=== PATIENT | female | born 1950 | race Caucasian/White ===

== ENCOUNTER 2023-05-05 15:29 | Observation (INO) | payer BC, MEDICARE ==
[2023-05-05 15:38] LABS: Glucose,Whole Blood 135 mg/dL (70-110)
--- NOTE | 2023-05-05 16:27 | XR ---
EXAMINATION TYPE: XR chest 2V DATE OF EXAM: 05/05/2023 4:23 PM CLINICAL INDICATION:Female, 72 years old with history of confusion fall; [facility] COMPARISON: Chest radiographs from 09/07/2015 TECHNIQUE: XR chest 2V Frontal and lateral views of the chest. FINDINGS: Lungs/Pleura: There is no evidence of pleural effusion, focal consolidation, or pneumothorax. Pulmonary vascularity: Unremarkable. Heart/mediastinum: Cardiomediastinal silhouette is unremarkable. Musculoskeletal: No acute osseous pathology. IMPRESSION: 1. No acute cardiopulmonary disease process. 2. COPD changes.
--- NOTE | 2023-05-05 16:32 | CT ---
EXAMINATION TYPE: CT brain cspine wo con CT DLP: 1496.1 mGycm, Automated exposure control for dose reduction was used. DATE OF EXAM: 05/05/2023 4:24 PM COMPARISON: 08/09/2017. CLINICAL INDICATION:Female, 72 years old with history of confusion; Shaking, disoriented, dizzy, conf used. TECHNIQUE: Brain: Multiple axial CT images of the brain were obtained without IV contrast. Cspine: Axial CT images from the skull base to the inferior aspect of T2 we obtained without intraven ous contrast. Coronal and sagittal reformatted images were also reviewed. FINDINGS: Brain: Extra-axial spaces: No abnormal extra-axial fluid collections. Ventricular system: Dilatation in proportion to cerebral atrophy. Cerebral parenchyma: Cerebral atrophy. No acute intraparenchymal hemorrhage or mass effect. The zarco -white junction is well differentiated. Scattered hypoattenuating areas are seen within the white mat ter. Cerebellum: Unremarkable. Mass effect: No evidence of midline shift. Intracranial vasculature: unremarkable Soft tissues: Normal. Calvarium/osseous structures: No depressed skull fracture. Paranasal sinuses and mastoid air cells: Clear. Visualized orbits: Left aphakia. The right lens is intact. Cervical spine: Fracture: None. Osseous structures: Multilevel degenerative disc disease changes with endplate spurring and disc oste ophyte complex's. Vertebral alignment: Within normal limits. Spinal canal/Neural Foramina: No evidence of significant spinal canal narrowing. No evidence for sign ificant neural foraminal stenosis. Neck soft tissues: Prevertebral soft tissues are within normal limits. IMPRESSION: 1. No acute intracranial process. 2. Nonspecific white matter changes, likely secondary to chronic small vessel ischemic disease. 3. No evidence of cervical spine fracture. 4. Mild multilevel degenerative disc disease.
[2023-05-05 16:47] LABS: ALT 48 U/L (4-34); African American GFR (CKD) >90 (>60 ml/min/1.73 sqM); Albumin 4.3 g/dL (3.5-5.0); Anion Gap 9 mmol/L; Basophils # (A) 0.1 k/uL (0-0.2); Basophils % (A) 1 %; Blood Urea Nitrogen 19 mg/dL (7-17); Calcium 9.1 mg/dL (8.4-10.2); Carbon Dioxide 24 mmol/L (22-30); Chloride 99 mmol/L (98-107); Eosinophils # (A) 0.1 k/uL (0-0.7); Eosinophils % (A) 1 %; Glucose 132 mg/dL (74-99); HCT 47.7 % (34.0-46.0); HGB 15.7 gm/dL (11.4-16.0); Lymphocytes # (A) 0.6 k/uL (1.0-4.8); Lymphocytes % (A) 6 %; MCH 34.1 pg (25.0-35.0); MCHC 32.9 g/dL (31.0-37.0); MCV 103.6 fL (80.0-100.0); Macrocytosis Slight; Mean Platelet Volume 7.1; Monocytes # (A) 0.5 k/uL (0-1.0); Monocytes % (A) 6 %; Neutrophils % (A) 86 %; Non-African American GFR(CKD) >90 (>60 ml/min/1.73 sqM); Platelet Count 304 k/uL (150-450); RDW 12.5 % (11.5-15.5); Sodium 132 mmol/L (137-145); Total Bilirubin 0.5 mg/dL (0.2-1.3); Total Protein 7.1 g/dL (6.3-8.2); WBC 9.3 k/uL (3.8-10.6)
[2023-05-05 17:04] LABS: AST 41 U/L (14-36)
[2023-05-05 17:05] LABS: Alkaline Phosphatase 194 U/L (38-126)
[2023-05-05 17:21] LABS: INR 0.9 (<1.2); Prothrombin Time 10.1 sec (10.0-12.5)
[2023-05-05 17:23] LABS: Partial Thromboplastin Time 21.7 sec (22.0-30.0)
--- NOTE | 2023-05-05 17:52 | ED ---
General Adult HPI - General Chief complaint: Syncope Stated complaint: shaking disoriented Time Seen by Provider: 05/05/23 17:46 Source: patient, RN notes reviewed Mode of arrival: ambulatory Limitations: no limitations - History of Present Illness Initial comments: 72 year old female with no significant past medical history presents the emergency department with a chief complaint of altered mental status. reports over the last 2 days that he has noticed the patient pacing and not making sense. She reports that she will intermittently forget things more frequently and describes that she is in a blue funk. She denies any known trauma or injury. He does endorse that she had a fall excellently 3 days ago however he is unsure if she hit her head. She denies any dizziness, lightheadedness, headache or vision changes or vision loss. Denies any chest pain or shortness of breath. She's never had this happen before. - Related Data Home Medications Medication Instructions Recorded Confirmed Aspirin [Adult Low Dose Aspirin EC] 81 mg PO HS 09/11/15 05/05/23 Atorvastatin [Lipitor] 10 mg PO HS 08/09/17 05/05/23 Magnesium 250 mg PO HS 08/09/17 05/05/23 Cholecalciferol [Vitamin D3 (25 25 mcg PO HS 05/05/23 05/05/23 Mcg = 1000 Iu)] Levothyroxine Sodium [Synthroid] 50 mcg PO DAILY 05/05/23 05/05/23 Multivit-Min/FA/Lycopen/Lutein 1 tab PO HS 05/05/23 05/05/23 [Centrum Silver Tablet] Vit C/E/Zn/Coppr/Lutein/Zeaxan 1 cap PO HS 05/05/23 05/05/23 [Preservision Areds 2 Softgel] Allergies Allergy/AdvReac Type Severity Reaction Status Date / Time lactose Allergy Diarrhea Verified 05/05/23 19:42 Review of Systems ROS Statement: Those systems with pertinent positive or pertinent negative responses have been documented in the HPI. ROS Other: All systems not noted in ROS Statement are negative. Past Medical History Past Medical History: Diabetes Mellitus, Hyperlipidemia Additional Past Medical History / Comment(s): hypothyroid History of Any Multi-Drug Resistant Organisms: None Reported Past Surgical History: No Surgical Hx Reported, Section Additional Past Surgical History / Comment(s): 1982 Past Anesthesia/Blood Transfusion Reactions: No Reported Reaction Past Psychological History: No Psychological Hx Reported Past Alcohol Use History: None Reported Past Drug Use History: None Reported - Past Family History Father Additional Family Medical History / Comment(s): Father at the age of 62 yrs from "natural causes." Mother Additional Family Medical History / Comment(s): Mother is due to house fire. General Exam - General Exam Comments Initial Comments: General: Alert, in no acute distress Head: atraumatic normocephalic. Eyes PERRL, EOMI intact, mucous membranes moist Respiratory: Lungs clear to auscultation bilaterally Cardiovascular: Heart rate regular rate and rhythm Abdominal: Soft without guarding or rebound Extremities: Normal inspection with full range of motion and normal capillary refill Neuroogic: alert and oriented 3, CN II-XII intact, able to ambulate with steady gait Skin: warm dry and intact with normal color Limitations: no limitations Course Vital Signs 05/05/23 05/05/23 05/05/23 15:34 18:32 22:10 Temperature 98.5 F 97.9 F Pulse Rate 79 71 Pulse Rate [ 83 Left Sitting Pulse Oximetery ] Respiratory 16 18 18 Rate Blood Pressure 171/94 195/92 Blood Pressure 135/78 [Left Arm Sitting] O2 Sat by Pulse 98 97 99 Oximetry - Reevaluation(s) Reevaluation #1: 05/05/23 20:18 [facility] discussed with Dr. Boland, [facility] who agrees and accepts the patient for admission with consult to neurology. EKG Findings - EKG Comments: EKG Findings:: I interpreted the following: EKG performed at 15:52 rate 70 bpm MA interval 148, QRS duration 82, QT/QTc 345/378 Medical Decision Making - Medical Decision Making Was pt. sent in by a medical professional or institution (, PA, WOOL PRESSER, urgent care, hospital, or care home...) When possible be specific @ -[No] Did you speak to anyone other than the patient for history (EMS, parent, family, police, friend...)? What history was obtained from this source @ -[No] Did you review nursing and triage notes (agree or disagree)? Why? @ -[I reviewed and agree with nursing and triage notes] Were old charts reviewed (outside hosp., previous admission, EMS record, old EKG, old radiological studies, urgent care reports/EKG's, care home records)? Report findings @ -[No old charts were reviewed] Differential Diagnosis (chest pain, altered mental status, abdominal pain women, abdominal pain men, vaginal bleeding, weakness, fever, dyspnea, syncope, headache, dizziness, GI bleed, back pain, seizure, CVA, palpatations, mental health, musculoskeletal)? @ -[not applicable] EKG interpreted by me (3pts min.). @ -[As above] X-rays interpreted by me (1pt min.). @ -[None done] CT interpreted by me (1pt min.). @ -CT head does not reveal any intracranial process U/S interpreted by me (1pt. min.). @ -[None done] What testing was considered but not performed or refused? (CT, X-rays, U/S, labs)? Why? @ -[None] What meds were considered but not given or refused? Why? @ -[None] Did you discuss the management of the patient with other professionals (professionals i.e. , PA, WOOL PRESSER, lab, RT, psych nurse, vp digital marketing social media and crm, licensed sales producer, teacher, armoured corps officer, case checker)? Give summary @ -Dr. Boland Was smoking cessation discussed for >3mins.? @ -[No] Was critical care preformed (if so, how long)? @ -[No] Were there social determinants of health that impacted care today? How? (Homelessness, low income, unemployed, alcoholism, drug addiction, transportation, low edu. Level, literacy, decrease access to med. care, care home, rehab)? @ -[No] Was there de-escalation of care discussed even if they declined (Discuss DNR or withdrawal of care, Hospice)? DNR status @ -[No] What co-morbidities impacted this encounter? (DM, HTN, Smoking, COPD, CAD, Cancer, CVA, ARF, Chemo, Hep., AIDS, mental health diagnosis, sleep apnea, morbid obesity)? @ -[None] Was patient admitted / discharged? Hospital course, mention meds given and route, prescriptions, significant lab abnormalities, going to OR and other per tinent info. @ Admission. This is a 72-year-old female who presents the emergency department with altered mental status. Patient had thorough history and physical exam performed while in the ED. Physical exam essentially unremarkable. Patient able to answer all questions appropriately. Heart rate regular rate and rhythm, lungs are to auscultation bilaterally abdomen soft and nontender. No focal neurologic deficits noted on exam. She is able to move all extremitiesfreely with a steady gait. Patient had laboratory studies which revealed WBC 9.3, hemoglobin 15.7 hematocrit 47.7 coags unremarkable sodium 132, potassium 5.0 BUN 19, creatinine 0.50 AST 41, aVL to 48 ammonia less than 9 initial troponin negative. Urinalysis negative. Despite having unremarkable laboratory and imaging status is my decision to admit the patient for further observation. Case discussed with Dr. Boland who agrees for further imaging with consult to neurology. Patient and patient's agreeable with this plan. Case discussed with Dr. Rivas [facility] who agrees with plan of care Undiagnosed new problem with uncertain prognosis? @ -[No] Drug Therapy requiring intensive monitoring for toxicity (Heparin, Nitro, Insu genesis, Cardizem)? @ -[No] Were any procedures done? @ -[No] Diagnosis/symptom? @ -Altered Mental Status Acute, or Chronic, or Acute on Chronic? @ -Acute Uncomplicated (without systemic symptoms) or Complicated (systemic symptoms)? @ -Uncomplicated Side effects of treatment? @ -[No] Exacerbation, Progression, or Severe Exacerbation? @ -[No] Poses a threat to life or bodily function? How? (Chest pain, [place], [place], pneumonia, PE, COPD, DKA, ARF, appy, cholecystitis, CVA, Diverticulitis, Homicidal, Suicidal, threat to staff... and all critical care pts) @ Yes, increased fall risk - Lab Data Result diagrams: 05/05/23 15:41 05/05/23 15:41 Lab Results 05/05/23 05/05/23 05/05/23 Range/Units 15:36 15:41 15:41 WBC 9.3 (3.8-10.6) k/uL RBC 4.60 (3.80-5.40) m/uL Hgb 15.7 (11.4-16.0) gm/dL Hct 47.7 H (34.0-46.0) % MCV 103.6 H (80.0-100.0) fL MCH 34.1 (25.0-35.0) pg MCHC 32.9 (31.0-37.0) g/dL RDW 12.5 (11.5-15.5) % Plt Count 304 (150-450) k/uL MPV 7.1 Neutrophils % 86 % Lymphocytes % 6 % Monocytes % 6 % Eosinophils % 1 % Basophils % 1 % Neutrophils # 8.0 H (1.3-7.7) k/uL Lymphocytes # 0.6 L (1.0-4.8) k/uL Monocytes # 0.5 (0-1.0) k/uL Eosinophils # 0.1 (0-0.7) k/uL Basophils # 0.1 (0-0.2) k/uL Macrocytosis Slight PT 10.1 (10.0-12.5) sec INR 0.9 (<1.2) APTT 21.7 L (22.0-30.0) sec Sodium (137-145) mmol/L Potassium (3.5-5.1) mmol/L Chloride (98-107) mmol/L Carbon Dioxide (22-30) mmol/L Anion Gap mmol/L BUN (7-17) mg/dL Creatinine (0.52-1.04) mg/dL Est GFR (CKD-EPI)AfAm (>60 ml/min/1.73 sqM) Est GFR (CKD-EPI)NonAf (>60 ml/min/1.73 sqM) Glucose (74-99) mg/dL POC Glucose (mg/dL) 135 H (70-110) mg/dL POC Glu Machine Setter And Repairer ID Chris Rajput Calcium (8.4-10.2) mg/dL Total Bilirubin (0.2-1.3) mg/dL AST (14-36) U/L ALT (4-34) U/L Alkaline Phosphatase (38-126) U/L Ammonia (<30) umol/L Troponin I (0.000-0.034) ng/mL Total Protein (6.3-8.2) g/dL Albumin (3.5-5.0) g/dL Urine Color Urine Appearance (Clear) Urine pH (5.0-8.0) Ur Specific Spencer (1.001-1.035) Urine Protein (Negative) Urine Glucose (UA) (Negative) Urine Ketones (Negative) Urine Blood (Negative) Urine Nitrite (Negative) Urine Bilirubin (Negative) Urine Urobilinogen (<2.0) mg/dL Ur Leukocyte Esterase (Negative) Urine RBC (0-5) /hpf Urine WBC (0-5) /hpf Ur Squamous Epith Cells (0-4) /hpf Amorphous Sediment (None) /hpf Urine Bacteria (None) /hpf Urine Mucus (None) /hpf 05/05/23 05/05/23 05/05/23 Range/Units 15:41 15:41 15:41 WBC (3.8-10.6) k/uL RBC (3.80-5.40) m/uL Hgb (11.4-16.0) gm/dL Hct (34.0-46.0) % MCV (80.0-100.0) fL MCH (25.0-35.0) pg MCHC (31.0-37.0) g/dL RDW (11.5-15.5) % Plt Count (150-450) k/uL MPV Neutrophils % % Lymphocytes % % Monocytes % % Eosinophils % % Basophils % % Neutrophils # (1.3-7.7) k/uL Lymphocytes # (1.0-4.8) k/uL Monocytes # (0-1.0) k/uL Eosinophils # (0-0.7) k/uL Basophils # (0-0.2) k/uL Macrocytosis PT (10.0-12.5) sec INR (<1.2) APTT (22.0-30.0) sec Sodium 132 L (137-145) mmol/L Potassium 5.0 (3.5-5.1) mmol/L Chloride 99 (98-107) mmol/L Carbon Dioxide 24 (22-30) mmol/L Anion Gap 9 mmol/L BUN 19 H (7-17) mg/dL Creatinine 0.50 L (0.52-1.04) mg/dL Est GFR (CKD-EPI)AfAm >90 (>60 ml/min/1.73 sqM) Est GFR (CKD-EPI)NonAf >90 (>60 ml/min/1.73 sqM) Glucose 132 H (74-99) mg/dL POC Glucose (mg/dL) (70-110) mg/dL POC Glu Machine Setter And Repairer ID Calcium 9.1 (8.4-10.2) mg/dL Total Bilirubin 0.5 (0.2-1.3) mg/dL AST 41 H (14-36) U/L ALT 48 H (4-34) U/L Alkaline Phosphatase 194 H (38-126) U/L Ammonia (<30) umol/L Troponin I <0.012 (0.000-0.034) ng/mL Total Protein 7.1 (6.3-8.2) g/dL Albumin 4.3 (3.5-5.0) g/dL Urine Color Yellow Urine Appearance Cloudy H (Clear) Urine pH 7.0 (5.0-8.0) Ur Specific Spencer 1.025 (1.001-1.035) Urine Protein Negative (Negative) Urine Glucose (UA) Negative (Negative) Urine Ketones Negative (Negative) Urine Blood Trace (Negative) Urine Nitrite Negative (Negative) Urine Bilirubin Negative (Negative) Urine Urobilinogen <2.0 (<2.0) mg/dL Ur Leukocyte Esterase Moderate (Negative) Urine RBC 3 (0-5) /hpf Urine WBC 5 (0-5) /hpf Ur Squamous Epith Cells 1 (0-4) /hpf Amorphous Sediment Moderate H (None) /hpf Urine Bacteria Occasional H (None) /hpf Urine Mucus Rare H (None) /hpf 05/05/23 Range/Units 18:41 WBC (3.8-10.6) k/uL RBC (3.80-5.40) m/uL Hgb (11.4-16.0) gm/dL Hct (34.0-46.0) % MCV (80.0-100.0) fL MCH (25.0-35.0) pg MCHC (31.0-37.0) g/dL RDW (11.5-15.5) % Plt Count (150-450) k/uL MPV Neutrophils % % Lymphocytes % % Monocytes % % Eosinophils % % Basophils % % Neutrophils # (1.3-7.7) k/uL Lymphocytes # (1.0-4.8) k/uL Monocytes # (0-1.0) k/uL Eosinophils # (0-0.7) k/uL Basophils # (0-0.2) k/uL Macrocytosis PT (10.0-12.5) sec INR (<1.2) APTT (22.0-30.0) sec Sodium (137-145) mmol/L Potassium (3.5-5.1) mmol/L Chloride (98-107) mmol/L Carbon Dioxide (22-30) mmol/L Anion Gap mmol/L BUN (7-17) mg/dL Creatinine (0.52-1.04) mg/dL Est GFR (CKD-EPI)AfAm (>60 ml/min/1.73 sqM) Est GFR (CKD-EPI)NonAf (>60 ml/min/1.73 sqM) Glucose (74-99) mg/dL POC Glucose (mg/dL) (70-110) mg/dL POC Glu Machine Setter And Repairer ID Calcium (8.4-10.2) mg/dL Total Bilirubin (0.2-1.3) mg/dL AST (14-36) U/L ALT (4-34) U/L Alkaline Phosphatase (38-126) U/L Ammonia <9 (<30) umol/L Troponin I (0.000-0.034) ng/mL Total Protein (6.3-8.2) g/dL Albumin (3.5-5.0) g/dL Urine Color Urine Appearance (Clear) Urine pH (5.0-8.0) Ur Specific Spencer (1.001-1.035) Urine Protein (Negative) Urine Glucose (UA) (Negative) Urine Ketones (Negative) Urine Blood (Negative) Urine Nitrite (Negative) Urine Bilirubin (Negative) Urine Urobilinogen (<2.0) mg/dL Ur Leukocyte Esterase (Negative) Urine RBC (0-5) /hpf Urine WBC (0-5) /hpf Ur Squamous Epith Cells (0-4) /hpf Amorphous Sediment (None) /hpf Urine Bacteria (None) /hpf Urine Mucus (None) /hpf Disposition Clinical Impression: Altered mental status Disposition: ADMITTED IP TO THIS HOSP Condition: Fair Time of Disposition: 20:20
[2023-05-05] MEDS ORDERED: SODIUM CHLORIDE 0.9% 1,000 ML IV ONE (18:23)
[2023-05-05 18:44] LABS: Amorphous Sediment,Urine Moderate /hpf; Bacteria,Urine Occasional /hpf; Mucus,Urine Rare /hpf; RBC,Urine 3 /hpf (0-5); Squamous Epithelial Cell,Urine 1 /hpf (0-4); WBC,Urine 5 /hpf (0-5)
[2023-05-05 18:51] LABS: Appearance,Urine Cloudy (Clear); Bilirubin,Urine Negative (Negative); Blood,Urine Trace (Negative); Color,Urine Yellow; Glucose,Urine (UA) Negative (Negative); Ketones,Urine Negative (Negative); Protein,Urine Negative (Negative); Specific Gravity,Urine 1.025 (1.001-1.035); Urobilinogen,Urine <2.0 mg/dL (<2.0)
[2023-05-05 18:52] LABS: Leukocyte Esterase,Urine Moderate (Negative); Nitrite,Urine Negative (Negative)
[2023-05-05] MEDS ORDERED: hydrALAZINE HCL 20 MG/ML 1 ML VIAL IVP STA (19:54)
[2023-05-05] MEDS ORDERED: NALOXONE 0.4 MG/ML 1 ML VIAL IV PRN (20:21)
[2023-05-05] MEDS: SODIUM CHLORIDE 0.9% 1,000 ML IV SCH (21:01)
[2023-05-06] MEDS ORDERED: ACETAMINOPHEN TAB 500 MG TAB PO PRN (03:24)
[2023-05-06 09:05] LABS: Basophils # (A) 0.08 X 10*3/uL (0.00-0.10); Basophils % (A) 1.3 %; Eosinophils # (A) 0.07 X 10*3/uL (0.04-0.35); Eosinophils % (A) 1.1 %; HGB 14.1 d/dL (12.0-15.0); Lymphocytes # (A) 0.39 X 10*3/uL (0.90-5.00); Lymphocytes % (A) 6.2 %; MCH 33.5 pg (27.0-32.0); MCHC 34.4 d/dL (32.0-37.0); MCV 97.4 FL (80.0-97.0); Mean Platelet Volume 9.1 FL (9.5-12.2); Monocytes # (A) 0.84 X 10*3/uL (0.20-1.00); Monocytes % (A) 13.3 %; NRBC Per 100 WBC 0 X 10*3/uL (0.00-0.01); Neutrophils # (A) 4.86 X 10*3/uL (1.80-7.70); Platelet Count 290 X 10*3/uL (140-440); RBC 4.21 X 10*6/uL (4.10-5.20); RDW 12.9 % (11.5-14.5); WBC 6.31 X 10*3/uL (4.50-10.00)
[2023-05-06 09:07] LABS: BUN/Creat Ratio 18.83 Ratio (12.00-20.00); Blood Urea Nitrogen 11.3 mg/dL (9.0-27.0); Calcium 8.8 mg/dL (8.7-10.3); Carbon Dioxide 29.1 mmol/L (21.6-31.8); Chloride 96 mmol/L (96-109); Glucose 125 mg/dL (70-110); Potassium 4.4 mmol/L (3.5-5.5); Sodium 133 mmol/L (135-145)
[2023-05-06] MEDS: HEPARIN SODIUM,PORCINE 5,000 UNIT/ML 1 ML VIAL SQ SCH ×2 (09:10→20:18)
[2023-05-06] MEDS: amLODIPine 5 MG TAB PO SCH (09:10)
[2023-05-06] MEDS: LEVOTHYROXINE 50 MCG TAB PO SCH (09:10)
[2023-05-06] MEDS: FAMOTIDINE 20 MG/2 ML VIAL IV SCH ×2 (09:10→20:18)
--- NOTE | 2023-05-06 11:55 | P.CNNES ---
History of Present Illness Consult date: 05/06/23 Requesting physician: Melida Jacobs Reason for Consult: ams vs early dementia History of Present Illness: This is a 72-year-old woman with history of seizure who presented emergency department because of confusion. Some of the history is obtained from the patient's was at bedside. Seems the patient has a history of seizures and that she's not on any antiepileptic drug and the stated in the past she had that shaken episode but recently the patient has been repeating herself asking the same questions, she feels her head is zapping and the hoping that "God would take away" according to the . According to the he thinks she was on Keppra in the past and the she could not tolerate the Keppra. She follows up with Dr. Gross. This seems that the her prior seizure was felt that due to hyponatremia according to the patient. Again the stated that the one of her seizures in the past was she had body shaking. He denies any further shaking episodes. Some other workup during his hospital visit consisted of: Patient is afebrile. White blood cell is normal. Sodium is 132, BUN is 19 and creatinine 0.5, glucose is 132, calcium is 9.1, AST is 41 ALT is 48 Ammonia is less than 9. Urinalysis seems negative for underlying urinary tract infection. CT of the head is reported as no acute intracranial process. Nonspecific white matter changes, likely secondary due to chronic small vessel ischemic disease. I personally reviewed the CT of head and I agree there is no acute or subacute ischemia there is no bleed. I felt that there is significant atrophy mostly in the posterior region in the parietal occipital region more than her age. CT cervical spine was reported as no evidence of cervical spine fracture. Mild multilevel degenerative disc disease. Review of Systems Review of system: The 12 point system was reviewed and apparent positive and negative per HPI. Past Medical History Past Medical History: Diabetes Mellitus, Hyperlipidemia Additional Past Medical History / Comment(s): hypothyroid History of Any Multi-Drug Resistant Organisms: None Reported Past Surgical History: No Surgical Hx Reported, Section Additional Past Surgical History / Comment(s): 1982 Past Anesthesia/Blood Transfusion Reactions: No Reported Reaction Past Psychological History: No Psychological Hx Reported Past Alcohol Use History: None Reported Past Drug Use History: None Reported - Past Family History Father Additional Family Medical History / Comment(s): Father at the age of 62 yrs from "natural causes." Mother Additional Family Medical History / Comment(s): Mother is due to house fire. Medications and Allergies Home Medications Medication Instructions Recorded Confirmed Type Aspirin [Adult Low Dose Aspirin EC] 81 mg PO HS 09/11/15 05/05/23 History Atorvastatin [Lipitor] 10 mg PO HS 08/09/17 05/05/23 History Magnesium 250 mg PO HS 08/09/17 05/05/23 History Cholecalciferol [Vitamin D3 (25 25 mcg PO HS 05/05/23 05/05/23 History Mcg = 1000 Iu)] Levothyroxine Sodium [Synthroid] 50 mcg PO DAILY 05/05/23 05/05/23 History Multivit-Min/FA/Lycopen/Lutein 1 tab PO HS 05/05/23 05/05/23 History [Centrum Silver Tablet] Vit C/E/Zn/Coppr/Lutein/Zeaxan 1 cap PO HS 05/05/23 05/05/23 History [Preservision Areds 2 Softgel] Allergies Allergy/AdvReac Type Severity Reaction Status Date / Time lactose Allergy Diarrhea Verified 05/05/23 19:42 Physical Examination - Vital Signs Vital Signs: Vital Signs Temp Pulse Pulse Pulse Resp BP BP 05/06/23 07:42 97.9 F 79 18 170/93 05/06/23 01:13 98.5 F 76 16 147/79 05/05/23 22:10 97.9 F 83 18 135/78 05/05/23 18:32 71 18 195/92 05/05/23 15:34 98.5 F 79 16 171/94 Pulse Ox 05/06/23 07:42 96 05/06/23 01:13 96 05/05/23 22:10 99 05/05/23 18:32 97 05/05/23 15:34 98 Intake and Output 05/05/23 05/06/23 05/06/23 22:59 06:59 14:59 Other: Voiding Method Toilet # Voids 1 1 # Bowel Movements 1 Weight 61.235 kg GENERAL: The patient is lying in bed and is not in acute distress. NEUROLOGICAL: Higher mental function: The patient is awake, alert, oriented to self, place and time. Patient is following commands. No aphasia and no neglect. Cranial nerves: The pupils are round, equal and reactive to light and accommodation. Visual harrison are full to confrontation throughout. Extraocular movement is intact no nystagmus is noted. Facial sensation is normal to touch throughout. The facial strength is normal throughout. Hearing is normal bilaterally to hand rub. Tongue is midline and moved [id number] without any difficulty. No dysarthria is noted. Shoulder shrug is normal bilaterally. Motor: The strength is 5 over 5 throughout. Normal tone and bulk. Cerebellum: Normal finger to nose bilaterally. Sensation: Sensation is normal to touch throughout. Reflexes (right/left): 2+ throughout. Plantars are downgoing bilaterally. Results - Laboratory Findings CBC and BMP: 05/06/23 05:30 05/06/23 05:30 Abnormal Lab Findings: Abnormal Labs 05/05/23 05/05/23 05/05/23 15:36 15:41 15:41 Hct 47.7 H MCV 103.6 H MCH MPV Neutrophils # 8.0 H Lymphocytes # 0.6 L APTT 21.7 L Sodium BUN Creatinine Glucose POC Glucose (mg/dL) 135 H AST ALT Alkaline Phosphatase Urine Appearance Amorphous Sediment Urine Bacteria Urine Mucus 05/05/23 05/05/23 05/06/23 15:41 15:41 05:30 Hct MCV 97.4 H MCH 33.5 H MPV 9.1 L Neutrophils # Lymphocytes # 0.39 L APTT Sodium 132 L BUN 19 H Creatinine 0.50 L Glucose 132 H POC Glucose (mg/dL) AST 41 H ALT 48 H Alkaline Phosphatase 194 H Urine Appearance Cloudy H Amorphous Sediment Moderate H Urine Bacteria Occasional H Urine Mucus Rare H 05/06/23 05:30 Hct MCV MCH MPV Neutrophils # Lymphocytes # APTT Sodium 133 L BUN Creatinine Glucose 125 H POC Glucose (mg/dL) AST ALT Alkaline Phosphatase Urine Appearance Amorphous Sediment Urine Bacteria Urine Mucus Assessment and Plan Assessment: This is a 72-year-old woman with history of seizure and had an episode of shaking in the past and was placed on Keppra according the but possibly as she could not tolerated and has not had any further seizure-like episodes but in the past couple weeks he noticed that she's repeating herself, asking the same questions, complaining of zapping in her head and the wishing to . Encephalopathy with episode of repeating herself asking the same question: Unknown exact etiology for possible underlying early dementia and on the CT of the head I felt she had more atrophied than her age was mostly atrophy in the posterior quadrant region in parietal occipital. Cannot also rule out seizure causing this Episodes of the head zapping: Rule out seizure History of seizure in the past and had body shaking History of hypothryoidism History of diabetes mellitus controlled with diet Plan: MRI the brain with and without is ordered and is pending I ordered a routine EEG TSH, folate, vitamin B-12, hemoglobin A1c is ordered and is pending I placed the patient on Vimpat 50 mg twice a day for concern of seizure. She could not tolerate Keppra in the past Placed on the seizure precaution with padded I recommend a detailed neuropsych evaluation as an outpatient If EEG and MRI are negative for any stroke or any seizure consider starting Aricept for concern of dementia. We'll defer the rest of the medical management to primary team Upon discharge the patient will continue to follow up with her neurologist as an outpatient (Dr. Ortega). Recommend following-up within 2-3 weeks. Plan discussed with the patient's was at bedside and her nurse Thank you for the consultation Dr. Leigh will start neurology service tomorrow A.M. Time with Patient: Greater than 30
[2023-05-06] MEDS: LACOSAMIDE 50 MG TABLET PO SCH ×2 (13:04→21:21)
[2023-05-06] MEDS: SODIUM CHLORIDE 0.9% 1,000 ML IV SCH ×2 (13:04→22:08)
--- NOTE | 2023-05-06 15:44 | EEG ---
ELECTROENCEPHALOGRAM REPORT CLINICAL HISTORY: This is a 72-year-old woman with history of seizure, who presented to the emergency department because of confusion. The video EEG is obtained to evaluate for seizure and epileptiform activity. RELEVANT MEDICATIONS: The patient is not on any antiepileptic drugs. EEG TYPE: A routine 21-channel EEG with video using the 10/20 electrode placement system. DESCRIPTION: Wakefulness is only obtained. The posterior-dominant rhythm consists of low-to- moderate voltage of 9 Hz activity, that is well modulated and well sustained. There is no physiological stage II sleep architecture. There is focal slowing over the right temporal region. INTERICTAL AND ICTAL: There appears to be rare sharp slow wave over the right over the T6. No seizures noted during the study. ACTIVATION PROCEDURE: Photic stimulation did not evoke a posterior driving response. There is no abnormality during the photic stimulation. Hyperventilation is not performed. CLINICAL INTERPRETATION: This is an abnormal routine EEG. The focal slowing seen over the right temporal is suggestive of focal cerebral dysfunction. The epileptiform discharges over the right temporal (T6 lead) increase risk for focal seizure and status epilepticus. Otherwise, no seizures noted during the study. Clinical correlation is recommended. MMODL / IJN: [id number] / AME
--- NOTE | 2023-05-06 19:05 | P.HPIM ---
History of Present Illness This is a pleasant 72 years old female with past medical history of Diabetes Mellitus, Hyperlipidemia. She is a patient of Dr. Arias Presents last night because of confusion and weakness , check with the history. Patient also has history of seizure before but she is not taking any seizure medication. She'll follow up with a neurologist Dr. Warren She denies headache dizziness weakness or numbness. No chest pain or dyspnea. No change in urine or bowel habits. No fever. Patient is hemodynamically stable, afebrile CBC is unremarkable, INR 0.9. Sodium 132, 119 and creatinine 0.5. Glucose 132. AST and ALT mildly elevated but ammonia less than 9. Troponin negative less than 0.012. EKG showing normal sinus rhythm at [address]-T changes Chest x-ray: No acute process, COPD changes CT of the head and neck: No acute process Patient was given IV hydralazine and normal saline and emergency room. She was admitted. Neurology consult Review of Systems Review of systems CONSTITUTIONAL: No fever, no malaise, no fatigue. HEENT: No recent visual problems or hearing problems. Denied any sore throat. CARDIOVASCULAR: No orthopnea, PND, no palpitations, no syncope. PULMONARY: No shortness of breath, no cough, no hemoptysis. GASTROINTESTINAL: No diarrhea, no nausea, no vomiting, no abdominal pain. Normoactive bowel sounds. NEUROLOGICAL: No headaches, no weakness, no numbness. HEMATOLOGICAL: Denies any bleeding or petechiae. GENITOURINARY: Denies any burning micturition, frequency, or urgency. MUSCULOSKELETAL/RHEUMATOLOGICAL: Denies any joint pain, swelling, or any muscle pain. ENDOCRINE: Denies any polyuria or polydipsia. Past Medical History Past Medical History: Diabetes Mellitus, Hyperlipidemia Additional Past Medical History / Comment(s): hypothyroid History of Any Multi-Drug Resistant Organisms: None Reported Past Surgical History: No Surgical Hx Reported, Section Additional Past Surgical History / Comment(s): 1982 Past Anesthesia/Blood Transfusion Reactions: No Reported Reaction Past Psychological History: No Psychological Hx Reported Past Alcohol Use History: None Reported Past Drug Use History: None Reported - Past Family History Father Additional Family Medical History / Comment(s): Father at the age of 62 yrs from "natural causes." Mother Additional Family Medical History / Comment(s): Mother is due to house fire. Medications and Allergies Home Medications Medication Instructions Recorded Confirmed Type Aspirin [Adult Low Dose Aspirin EC] 81 mg PO HS 09/11/15 05/05/23 History Atorvastatin [Lipitor] 10 mg PO HS 08/09/17 05/05/23 History Magnesium 250 mg PO HS 08/09/17 05/05/23 History Cholecalciferol [Vitamin D3 (25 25 mcg PO HS 05/05/23 05/05/23 History Mcg = 1000 Iu)] Levothyroxine Sodium [Synthroid] 50 mcg PO DAILY 05/05/23 05/05/23 History Multivit-Min/FA/Lycopen/Lutein 1 tab PO HS 05/05/23 05/05/23 History [Centrum Silver Tablet] Vit C/E/Zn/Coppr/Lutein/Zeaxan 1 cap PO HS 05/05/23 05/05/23 History [Preservision Areds 2 Softgel] Allergies Allergy/AdvReac Type Severity Reaction Status Date / Time lactose Allergy Diarrhea Verified 05/05/23 19:42 Physical Exam Vitals: Vital Signs Temp Pulse Pulse Resp BP BP Pulse Ox 05/06/23 01:13 98.5 F 76 16 147/79 96 05/05/23 22:10 97.9 F 83 18 135/78 99 05/05/23 18:32 71 18 195/92 97 05/05/23 15:34 98.5 F 79 16 171/94 98 Intake and Output 05/05/23 05/06/23 05/06/23 22:59 06:59 14:59 Other: Voiding Method Toilet # Voids 1 Weight 61.235 kg -GENERAL: The patient is alert and oriented , mildly confused not in any acute distress. Well developed, well nourished. HEENT: Pupils are round and equally reacting to light. EOMI. No scleral icterus. No conjunctival pallor. Normocephalic, atraumatic. No pharyngeal erythema. No thyromegaly. CARDIOVASCULAR: S1 and S2 present. No murmurs, rubs, or gallops. PULMONARY: Chest is clear to auscultation, no wheezing , no crackles. ABDOMEN: Soft, nontender, nondistended, normoactive bowel sounds. No palpable organomegaly. MUSCULOSKELETAL: No joint swelling or deformity. EXTREMITIES: No cyanosis, clubbing, or pedal edema. NEUROLOGICAL: Gross neurological examination did not reveal any focal deficits. SKIN: No rashes. no petechiae. Results CBC & Chem 7: 05/06/23 05:30 05/06/23 05:30 Labs: Abnormal Lab Results - Last 24 Hours (Table) 05/05/23 05/05/23 05/05/23 Range/Units 15:36 15:41 15:41 Hct 47.7 H (34.0-46.0) % MCV 103.6 H (80.0-100.0) fL Neutrophils # 8.0 H (1.3-7.7) k/uL Lymphocytes # 0.6 L (1.0-4.8) k/uL APTT 21.7 L (22.0-30.0) sec Sodium (137-145) mmol/L BUN (7-17) mg/dL Creatinine (0.52-1.04) mg/dL Glucose (74-99) mg/dL POC Glucose (mg/dL) 135 H (70-110) mg/dL AST (14-36) U/L ALT (4-34) U/L Alkaline Phosphatase (38-126) U/L Urine Appearance (Clear) Amorphous Sediment (None) /hpf Urine Bacteria (None) /hpf Urine Mucus (None) /hpf 05/05/23 05/05/23 Range/Units 15:41 15:41 Hct (34.0-46.0) % MCV (80.0-100.0) fL Neutrophils # (1.3-7.7) k/uL Lymphocytes # (1.0-4.8) k/uL APTT (22.0-30.0) sec Sodium 132 L (137-145) mmol/L BUN 19 H (7-17) mg/dL Creatinine 0.50 L (0.52-1.04) mg/dL Glucose 132 H (74-99) mg/dL POC Glucose (mg/dL) (70-110) mg/dL AST 41 H (14-36) U/L ALT 48 H (4-34) U/L Alkaline Phosphatase 194 H (38-126) U/L Urine Appearance Cloudy H (Clear) Amorphous Sediment Moderate H (None) /hpf Urine Bacteria Occasional H (None) /hpf Urine Mucus Rare H (None) /hpf Assessment and Plan Assessment: altered mental status, mild, could be secondary to dementia. Rule out intra cranial causes. Possible seizure. Neurologist mild transaminitis with low ammonia level Diabetes mellitus Hypertension, uncontrolled on admission Hyperlipidemia Hypothyroidism Plan: Continue with the neuro check Follow-up MRI of the brain Continue with hydration Continue with antiseizure medication Follow-up EEG Labs and medication were reviewed.. Continue same treatment. Continue with symptomatic treatment. Resume home medication. Monitor lytes and vitals. DVT and GI prophylaxis. Further recommendations depends on the clinical course of the patient DVT prophylaxis: Subcutaneous heparin GI Prophylaxis: Pepcid PT/OT: Pending Prognosis is guarded
--- NOTE | 2023-05-06 19:45 | MR ---
EXAMINATION TYPE: MR brain wo/w con DATE OF EXAM: 05/06/2023 COMPARISON: CT brain from 1 day earlier HISTORY: AMS TECHNIQUE: Multiplanar, multisequence images of the brain and brainstem is performed without and with IV contras t, utilizing 6 mL intravenous Gadavist . FINDINGS: Diffusion weighted images demonstrate no evidence of a recent infarct or other diffusion ab normality. There is mild to moderate ventricular and sulcal prominence redemonstrated. Some scattere d foci of T2 hyperintensity are seen throughout the white matter bilaterally. Approximately 20 scatte red lesions are seen. Lesions are nonspecific in appearance and distribution. Midline structures demonstrate normal morphology. The craniocervical junction appears within normal limits. Post contrast images demonstrate no abnormal enhancement. The dural venous sinuses appear pa tent. The visualized sinuses are clear and the globes are intact. IMPRESSION: 1. No MRI evidence for a recent infarct. 2. [id number] diffuse cerebral atrophy and chronic small vessel ischemic changes are present. N o suspicious enhancement is seen.
[2023-05-06] MEDS: ATORVASTATIN 10 MG TAB PO SCH (20:18)
[2023-05-06] MEDS: ASPIRIN 81 MG PO SCH ×2 (20:19→22:07)
[2023-05-07] MEDS: LEVOTHYROXINE 50 MCG TAB PO SCH (05:38)
[2023-05-07] MEDS: FAMOTIDINE 20 MG/2 ML VIAL IV SCH ×2 (08:47→20:10)
[2023-05-07] MEDS: HEPARIN SODIUM,PORCINE 5,000 UNIT/ML 1 ML VIAL SQ SCH ×2 (08:47→20:10)
[2023-05-07] MEDS: amLODIPine 5 MG TAB PO SCH (08:48)
[2023-05-07] MEDS: LACOSAMIDE 50 MG TABLET PO SCH ×2 (08:48→20:10)
[2023-05-07] MEDS: SODIUM CHLORIDE 0.9% 1,000 ML IV SCH (15:39)
[2023-05-07] MEDS: metFORMIN 500 MG TAB PO SCH (16:58)
[2023-05-07] MEDS: ATORVASTATIN 10 MG TAB PO SCH (20:09)
[2023-05-07] MEDS: ASPIRIN 81 MG PO SCH (20:10)
[2023-05-08] MEDS: LEVOTHYROXINE 50 MCG TAB PO SCH (05:52)
--- NOTE | 2023-05-08 06:02 | P.PN ---
Subjective This is a pleasant 72 years old female with past medical history of Diabetes Mellitus, Hyperlipidemia. She is a patient of Dr. Arias Presents last night because of confusion and weakness , check with the history. Patient also has history of seizure before but she is not taking any seizure medication. She'll follow up with a neurologist Dr. Warren She denies headache dizziness weakness or numbness. No chest pain or dyspnea. No change in urine or bowel habits. No fever. Patient is hemodynamically stable, afebrile CBC is unremarkable, INR 0.9. Sodium 132, 119 and creatinine 0.5. Glucose 132. AST and ALT mildly elevated but ammonia less than 9. Troponin negative less than 0.012. EKG showing normal sinus rhythm at [address]-T changes Chest x-ray: No acute process, COPD changes CT of the head and neck: No acute process Patient was given IV hydralazine and normal saline and emergency room. She was admitted. Neurology consult 05/07/2023 I talked to the today her main her problem is memory and sometimes gets confused area he admits she has memory problem for about 2 years but is worse now. Sometimes he forgets what she is doing and she keep walking back and forth in the house, sometimes also she forgot son keeps saying the same sentence again and again. She could not tell where she is for example she did not know she is in the hospital or she is in [place]. She knew his 2022 and is April about she couldn't tell the date or the name of the president although withheld she could answer these questions. She denies headache or dizziness. No weakness or numbness. No other physical complaints. B12 TSH and folate were unremarkable. Hemoglobin A1c is slightly elevated at 7.2 and we started her on metformin. No breathing problem. MRI of the brain showing no acute process but Mild to moderate cerebral atrophy EEG is negative for acute process. Patient evaluated by neurologist. Possible discharge soon Objective - Vital Signs Vital signs: Vital Signs Temp 98.2 F 05/07/23 07:29 Pulse 76 05/07/23 07:29 Resp 16 05/07/23 07:29 BP 164/78 05/07/23 07:29 Pulse Ox 97 05/07/23 07:29 FiO2 Intake & Output 05/06/23 05/07/23 05/07/23 18:59 06:59 18:59 Other: Voiding Method Toilet # Voids 3 6 1 # Bowel Movements 1 - Exam -GENERAL: The patient is alert and oriented x0-1, not in any acute distress. Well developed, well nourished. Forgets full HEENT: Pupils are round and equally reacting to light. EOMI. No scleral icterus. No conjunctival pallor. Normocephalic, atraumatic. No pharyngeal erythema. No thyromegaly. CARDIOVASCULAR: S1 and S2 present. No murmurs, rubs, or gallops. PULMONARY: Chest is clear to auscultation, no wheezing , no crackles. ABDOMEN: Soft, nontender, nondistended, normoactive bowel sounds. No palpable organomegaly. MUSCULOSKELETAL: No joint swelling or deformity. EXTREMITIES: No cyanosis, clubbing, or pedal edema. NEUROLOGICAL: Gross neurological examination did not reveal any focal deficits. SKIN: No rashes. no petechiae. - Labs CBC & Chem 7: 05/06/23 05:30 05/06/23 05:30 Labs: Abnormal Lab Results - Last 24 Hours (Table) 05/06/23 Range/Units 05:30 Hemoglobin A1c 7.2 H (<=6.0) % Assessment and Plan Assessment: altered mental status, mild, most likely secondary to dementia. Possible seizure. Neurologist started the patient on vimpat mild transaminitis with low ammonia level Diabetes mellitus Hypertension, uncontrolled on admission Hyperlipidemia Hypothyroidism Plan: Continue with the neuro check Follow-up MRI of the brain Continue with hydration Continue with antiseizure medication Follow-up EEG Labs and medication were reviewed.. Continue same treatment. Continue with symptomatic treatment. Resume home medication. Monitor lytes and vitals. DVT and GI prophylaxis. Further recommendations depends on the clinical course of the patient DVT prophylaxis: Subcutaneous heparin GI Prophylaxis: Pepcid PT/OT: Pending Prognosis is guarded
[2023-05-08] MEDS: amLODIPine 5 MG TAB PO SCH (09:43)
[2023-05-08] MEDS: HEPARIN SODIUM,PORCINE 5,000 UNIT/ML 1 ML VIAL SQ SCH ×2 (09:43→21:17)
[2023-05-08] MEDS: metFORMIN 500 MG TAB PO SCH (09:43)
[2023-05-08] MEDS: FAMOTIDINE 20 MG/2 ML VIAL IV SCH ×2 (09:43→21:17)
[2023-05-08] MEDS: LACOSAMIDE 50 MG TABLET PO SCH ×2 (09:43→21:16)
--- NOTE | 2023-05-08 10:25 | P.PN ---
Subjective Progress Note Date: 05/07/23 Patient was initially seen by Dr. Tyler Gutierrez. Please refer to his note for details. Patient is a 72-year-old female with history of seizure, not on any AED, who presents with confusion. EEG shows discharges over the right temporal region but no seizures. Patient placed on Vimpat. Patient probably has underlying dementia. Some other workup during his hospital visit consisted of: Patient is afebrile. White blood cell is normal. Sodium is 132, BUN is 19 and creatinine 0.5, glucose is 132, calcium is 9.1, AST is 41 ALT is 48 Ammonia is less than 9. Urinalysis seems negative for underlying urinary tract infection. CT of the head is reported as no acute intracranial process. Nonspecific white matter changes, likely secondary due to chronic small vessel ischemic disease. I personally reviewed the CT of head and I also agree there is no acute or subacute ischemia there is no bleed. I felt that there is significant atrophy mostly in the frontal parietal region more than her age. CT cervical spine was reported as no evidence of cervical spine fracture. Mild multilevel degenerative disc disease. Objective - Vital Signs Vital signs: Vital Signs Temp 98.2 F 05/07/23 12:45 Pulse 70 05/07/23 12:45 Resp 18 05/07/23 12:45 BP 111/69 05/07/23 12:45 Pulse Ox 96 05/07/23 12:45 FiO2 Intake & Output 05/06/23 05/07/23 05/07/23 18:59 06:59 18:59 Other: Voiding Method Toilet # Voids 3 6 1 # Bowel Movements 1 - Exam Patient is an elderly female, in no acute distress. She appears slightly delirious. She knows her name, age and that she was born in 1950. She knows that she is in [facility] and it is April and the year is 2022 and is a fall season. She knows name of the president Mr. Taveras. Patient has no visuospatial apraxia, required prompt 1, as she does have s ignificant bilateral positive palmomental reflex. Patient has some short term memory impairment. Per nurse, she repeats frequently. Cranial nerves are normal. Muscle strength is normal. No ataxia Sensations normal. - Labs CBC & Chem 7: 05/06/23 05:30 05/06/23 05:30 Assessment and Plan Assessment: This is a 72-year-old woman with history of seizure and had an episode of shaking in the past and was placed on Keppra according the but possibly as she could not tolerate it and has not had any further seizure-like episodes but in the past couple weeks he noticed that she's repeating herself, asking the same questions, complaining of zapping in her head and wishing to . Encephalopathy with episode of repeating herself asking the same question: Unknown exact etiology for possible underlying early dementia and on the CT of the head I felt she had more atrophied than her age was mostly atrophy in the by bilateral frontal parietal region. Cannot also rule out seizure causing this Episodes of the head zapping: Rule out seizure History of seizure in the past and had body shaking History of hypothryoidism History of diabetes mellitus controlled with diet Plan: MRI the brain with and without revealed no MRI evidence for recent infarct. Mild to moderate diffuse cerebral atrophy and chronic small vessel ischemic changes are present. No suspicious enhancement is seen. I personally reviewed MRI, agree with the findings. EEG was reviewed by Dr. Gutierrez. Reported focal slowing seen over the right temporal region suggestive of focal cerebral dysfunction. The epileptiform discharges were seen over the T6, which increases risk for focal seizure and status epilepticus. Dr. Gutierrez has started patient on Vimpat 50 mg twice a day. This will be continued. TSH 4.86, folate 19.80, vitamin B-12 690, hemoglobin A1c 7.2. Recommend optimize control of diabetes to target A1c < 7.0. Dr. Gutierrez placed the patient on Vimpat 50 mg twice a day for concern of seizure. She could not tolerate Keppra in the past Placed on the seizure precaution with padded I recommend a detailed neuropsych evaluation as an outpatient May consider starting Aricept, once cognitive impairment is confirmed. We'll defer the rest of the medical management to primary team Upon discharge the patient will continue to follow up with her neurologist as an outpatient (Dr. Ortega). Recommend following-up within 2-3 weeks.
[2023-05-08] MEDS ORDERED: ACETAMINOPHEN TAB 325 MG TAB PO STA (13:40)
--- NOTE | 2023-05-08 20:32 | P.PN ---
Subjective This is a pleasant 72 years old female with past medical history of Diabetes Mellitus, Hyperlipidemia. She is a patient of Dr. Arias Presents last night because of confusion and weakness , check with the history. Patient also has history of seizure before but she is not taking any seizure medication. She'll follow up with a neurologist Dr. Warren She denies headache dizziness weakness or numbness. No chest pain or dyspnea. No change in urine or bowel habits. No fever. Patient is hemodynamically stable, afebrile CBC is unremarkable, INR 0.9. Sodium 132, 119 and creatinine 0.5. Glucose 132. AST and ALT mildly elevated but ammonia less than 9. Troponin negative less than 0.012. EKG showing normal sinus rhythm at [address]-T changes Chest x-ray: No acute process, COPD changes CT of the head and neck: No acute process Patient was given IV hydralazine and normal saline and emergency room. She was admitted. Neurology consult 05/07/2023 I talked to the today her main her problem is memory and sometimes gets confused area he admits she has memory problem for about 2 years but is worse now. Sometimes he forgets what she is doing and she keep walking back and forth in the house, sometimes also she forgot son keeps saying the same sentence again and again. She could not tell where she is for example she did not know she is in the hospital or she is in [place]. She knew his 2022 and is April about she couldn't tell the date or the name of the president although withheld she could answer these questions. She denies headache or dizziness. No weakness or numbness. No other physical complaints. B12 TSH and folate were unremarkable. Hemoglobin A1c is slightly elevated at 7.2 and we started her on metformin. No breathing problem. MRI of the brain showing no acute process but Mild to moderate cerebral atrophy EEG is negative for acute process. Patient evaluated by neurologist. Possible discharge soon pt is clinically the same , she is most of the time sitting in her bed , answer most question but slowly, she is keep forgetting things, her mri of the brain showed no acute process but mainly cerebral atrophy ( mild to moderate) tsh , b12 are unremarkable and they are normal hba1c shows elvated at 7.2% , pt and informed and they agree to start her on metformin possible dc in 24-48 hours once cleared by neurologist Objective - Vital Signs Vital signs: Vital Signs Temp 97.9 F 05/08/23 11:57 Pulse 74 05/08/23 11:57 Resp 17 05/08/23 11:57 BP 155/82 05/08/23 11:57 Pulse Ox 95 05/08/23 11:57 FiO2 Intake & Output 05/08/23 05/08/23 05/09/23 06:59 18:59 06:59 Intake Total 540 Balance 540 Intake: Oral 540 Other: Voiding Method Toilet Toilet # Voids 1 1 - Exam -GENERAL: The patient is alert and oriented x0-1, not in any acute distress. Well developed, well nourished. Forgets full HEENT: Pupils are round and equally reacting to light. EOMI. No scleral icterus. No conjunctival pallor. Normocephalic, atraumatic. No pharyngeal erythema. No thyromegaly. CARDIOVASCULAR: S1 and S2 present. No murmurs, rubs, or gallops. PULMONARY: Chest is clear to auscultation, no wheezing , no crackles. ABDOMEN: Soft, nontender, nondistended, normoactive bowel sounds. No palpable organomegaly. MUSCULOSKELETAL: No joint swelling or deformity. EXTREMITIES: No cyanosis, clubbing, or pedal edema. NEUROLOGICAL: Gross neurological examination did not reveal any focal deficits. SKIN: No rashes. no petechiae. - Labs CBC & Chem 7: 05/06/23 05:30 05/06/23 05:30 Assessment and Plan Assessment: altered mental status, mild, most likely secondary to dementia. Possible seizure. Neurologist started the patient on vimpat mild transaminitis with low ammonia level Diabetes mellitus Hypertension, uncontrolled on admission Hyperlipidemia Hypothyroidism Plan: Continue with the neuro check c/w with vimpat dc home once cleared by neurologist start metformin nad recheck hb a1c as outpatie Labs and medication were reviewed.. Continue same treatment. Continue with symptomatic treatment. Resume home medication. Monitor lytes and vitals. DVT and GI prophylaxis. Further recommendations depends on the clinical course of the patient DVT prophylaxis: Subcutaneous heparin GI Prophylaxis: Pepcid Prognosis is guarded plan of care discussed with and pt and they are agreeable
[2023-05-08] MEDS: ATORVASTATIN 10 MG TAB PO SCH (21:16)
[2023-05-08] MEDS: ASPIRIN 81 MG PO SCH (21:16)
[2023-05-09] MEDS: LEVOTHYROXINE 50 MCG TAB PO SCH (06:05)
[2023-05-09 07:17] VITALS: BP 149/88; PULSE 68; RESP 17; TEMP 97.4
[2023-05-09] MEDS: LACOSAMIDE 50 MG TABLET PO SCH (08:52)
[2023-05-09] MEDS: HEPARIN SODIUM,PORCINE 5,000 UNIT/ML 1 ML VIAL SQ SCH (08:52)
[2023-05-09] MEDS: amLODIPine 5 MG TAB PO SCH (08:52)
[2023-05-09] MEDS: metFORMIN 500 MG TAB PO SCH (08:52)
[2023-05-09] MEDS: FAMOTIDINE 20 MG/2 ML VIAL IV SCH (08:52)
--- NOTE | 2023-05-09 22:05 | P.DS ---
Providers Date of admission: 05/05/23 20:10 Expected date of discharge: 05/09/23 Attending physician: Burke Ruff Consults: 05/05/23 20:21 Consult Physician Routine Consulting Provider: Tyler Gutierrez Consult Reason/Comments: AMS vs. Early dementia Do you want consulting provider notified?: Yes Primary care physician: [facility] Course: This is a pleasant 72 years old female with past medical history of Diabetes Mellitus, Hyperlipidemia. She is a patient of Dr. Arias Presents last night because of confusion and weakness , check with the history. Patient also has history of seizure before but she is not taking any seizure medication. She'll follow up with a neurologist Dr. Warren She denies headache dizziness weakness or numbness. No chest pain or dyspnea. No change in urine or bowel habits. No fever. Patient is hemodynamically stable, afebrile CBC is unremarkable, INR 0.9. Sodium 132, 119 and creatinine 0.5. Glucose 132. AST and ALT mildly elevated but ammonia less than 9. Troponin negative less than 0.012. EKG showing normal sinus rhythm at [address]-T changes Chest x-ray: No acute process, COPD changes CT of the head and neck: No acute process Patient was given IV hydralazine and normal saline and emergency room. She was admitted. Neurology consult 05/07/2023 I talked to the today her main her problem is memory and sometimes gets confused area he admits she has memory problem for about 2 years but is worse now. Sometimes he forgets what she is doing and she keep walking back and forth in the house, sometimes also she forgot son keeps saying the same sentence again and again. She could not tell where she is for example she did not know she is in the hospital or she is in [facility]. She knew his 2022 and is April about she couldn't tell the date or the name of the president although withheld she could answer these questions. She denies headache or dizziness. No weakness or numbness. No other physical complaints. B12 TSH and folate were unremarkable. Hemoglobin A1c is slightly elevated at 7.2 and we started her on metformin. No breathing problem. MRI of the brain showing no acute process but Mild to moderate cerebral atrophy EEG is negative for acute process. Patient evaluated by neurologist. Possible discharge soon pt is clinically the same , she is most of the time sitting in her bed , answer most question but slowly, she is keep forgetting things, her mri of the brain showed no acute process but mainly cerebral atrophy ( mild to moderate) tsh , b12 are unremarkable and they are normal hba1c shows elvated at 7.2% , pt and informed and they agree to start her on metformin possible dc in 24-48 hours once cleared by neurologist May 09: Patient is cleared by neurology for discharge. We will take Vimpat 50 mg twice a day. We'll follow up with Dr. Gross neurology. Care was discussed with the patient and . Questions answered. Seizure pr ecautions including no driving discussed. Discussion and discharge planning more than 35 minutes On exam: 97.4, 68, 17, 149/88, 94% room air Sitting up in bed, awake, comfortable Lungs: Clear Cardiovascular first seconds are normal Psychiatry: Able to answer simple questions. Investigations: MRI brain: Mild to moderate diffuse cerebral atrophy and chronic small vessel ischemic changes. EEG: Focal slowing seen over the right temporal is suggestive of focal cerebral dysfunction. Assessment: altered mental status, mild, most likely secondary to dementia. Probable seizure. Neurologist started the patient on vimpat mild transaminitis with low ammonia level Diabetes mellitus Hypertension, uncontrolled on admission Hyperlipidemia Hypothyroidism Disposition: Home Plan - Discharge Summary Discharge Rx Participant: No New Discharge Prescriptions: New amLODIPine [Norvasc] 5 mg PO DAILY #30 tab metFORMIN HCL [Glucophage] 500 mg PO DAILY #30 tablet Lacosamide [Vimpat] 50 mg PO BID #60 tab Continue Aspirin [Adult Low Dose Aspirin EC] 81 mg PO HS Atorvastatin [Lipitor] 10 mg PO HS Cholecalciferol [Vitamin D3 (25 Mcg = 1000 Iu)] 25 mcg PO HS Levothyroxine Sodium [Synthroid] 50 mcg PO DAILY Multivit-Min/FA/Lycopen/Lutein [Centrum Silver Tablet] 1 tab PO HS Vit C/E/Zn/Coppr/Lutein/Zeaxan [Preservision Areds 2 Softgel] 1 cap PO HS Discontinued Magnesium 250 mg PO HS Discharge Medication List Aspirin [Adult Low Dose Aspirin EC] 81 mg PO HS 09/11/15 [History] Atorvastatin [Lipitor] 10 mg PO HS 08/09/17 [History] Cholecalciferol [Vitamin D3 (25 Mcg = 1000 Iu)] 25 mcg PO HS 05/05/23 [History] Levothyroxine Sodium [Synthroid] 50 mcg PO DAILY 05/05/23 [History] Multivit-Min/FA/Lycopen/Lutein [Centrum Silver Tablet] 1 tab PO HS 05/05/23 [History] Vit C/E/Zn/Coppr/Lutein/Zeaxan [Preservision Areds 2 Softgel] 1 cap PO HS 05/05/23 [History] Lacosamide [Vimpat] 50 mg PO BID #60 tab 05/09/23 [Rx] amLODIPine [Norvasc] 5 mg PO DAILY #30 tab 05/09/23 [Rx] metFORMIN HCL [Glucophage] 500 mg PO DAILY #30 tablet 05/09/23 [Rx] Follow up Appointment(s)/Referral(s): Michael Adler MD [Primary Care Provider] - 1 Week (no answer from office, please call for appt) Divya Warren MD [REFERRING] - 1-2 days (The office will call you with an appointment time and date.) Patient Instructions/Handouts: Amlodipine (By mouth), Lacosamide (By mouth), Altered Mental Status (GEN), Recurrent Seizures in Adults (DC) Discharge Disposition: HOME SELF-CARE
== END 2023-05-09 12:24 | disposition home or self-care (01) ==
LOC: EC 15:29 → INTOOBSV 20:10 → 6NMEDSUR 20:10 → OBSVTOIN 20:10 → 5NMEDONC 21:10
PROVIDERS: ADMIT Hospitalist; ATTEND Hospitalist
DX: G93.40 Encephalopathy, unspecified (principal); E11.9 Type 2 diabetes mellitus without complications; E78.5 Hyperlipidemia, unspecified; E03.9 Hypothyroidism, unspecified; I10 Essential (primary) hypertension; R74.01 Elevation of levels of liver transaminase levels; Z79.82 Long term (current) use of aspirin; Z79.899 Other long term (current) drug therapy; Z79.890 Hormone replacement therapy
CPT/HCPCS: 96376 ×4; 96361 ×4; 96372 ×4; 96375; 96374; 99285; 36415; 95816; 93005; 97161; 80053; 80048; 84443; 82607; 82140; 82746; 84484; 85025 ×2; 85610; 85730; 81001; 83036; 71046; 72125; 70450; 70553; G0378 ×5; J0360; J1644 ×4; J3490 ×4; A9585

== ENCOUNTER 2023-06-24 18:08 | Inpatient (IN) | payer MEDICARE ==
[2023-06-24] MEDS ORDERED: LORazepam 2 MG/ML INJ IV STA ×2 (18:12→19:03)
[2023-06-24] MEDS ORDERED: SODIUM CHLORIDE 0.9% 1,000 ML IV STA (18:12)
--- NOTE | 2023-06-24 18:13 | ED ---
Seizure HPI - General Stated Complaint: Seizure Time Seen by Provider: 06/24/23 18:12 - History of Present Illness Initial Comments: 72-year-old female seizure disorder a couple of months ago is not the ER today after seizure at home. Patient is postictal upon arrival offers no meaningful history. - Related Data Home Medications Medication Instructions Recorded Confirmed Aspirin [Adult Low Dose Aspirin EC] 81 mg PO HS 09/11/15 06/24/23 Atorvastatin [Lipitor] 10 mg PO HS 08/09/17 06/24/23 Cholecalciferol [Vitamin D3 (25 25 mcg PO HS 05/05/23 06/24/23 Mcg = 1000 Iu)] Levothyroxine Sodium [Synthroid] 50 mcg PO DAILY 05/05/23 06/24/23 Multivit-Min/FA/Lycopen/Lutein 1 tab PO HS 05/05/23 06/24/23 [Centrum Silver Tablet] Vit C/E/Zn/Coppr/Lutein/Zeaxan 1 cap PO HS 05/05/23 06/24/23 [Preservision Areds 2 Softgel] Previous Rx's Medication Instructions Recorded Lacosamide [Vimpat] 50 mg PO BID #60 tab 05/09/23 amLODIPine [Norvasc] 5 mg PO DAILY #30 tab 05/09/23 metFORMIN HCL [Glucophage] 500 mg PO DAILY #30 tablet 05/09/23 Allergies Allergy/AdvReac Type Severity Reaction Status Date / Time lactose AdvReac Diarrhea Verified 06/24/23 22:56 Review of Systems ROS Statement: Those systems with pertinent positive or pertinent negative responses have been documented in the HPI. ROS Other: All systems not noted in ROS Statement are negative. Past Medical History Past Medical History: Diabetes Mellitus, Hyperlipidemia Additional Past Medical History / Comment(s): hypothyroid History of Any Multi-Drug Resistant Organisms: None Reported Past Surgical History: No Surgical Hx Reported, Section Additional Past Surgical History / Comment(s): 1982 Past Anesthesia/Blood Transfusion Reactions: No Reported Reaction Past Psychological History: No Psychological Hx Reported Past Alcohol Use History: None Reported Past Drug Use History: None Reported - Past Family History Father Additional Family Medical History / Comment(s): Father at the age of 62 yrs from "natural causes." Mother Additional Family Medical History / Comment(s): Mother is due to house fire. General Exam - General Exam Comments Initial Comments: Physical Exam GENERAL: Patient is well-developed and well-nourished. Patient is nontoxic and well-hydrated and is in no distress. HENT: Normocephalic, Atraumatic. EYES: PERRL, EOMI PULMONARY: Unlabored respirations. CARDIOVASCULAR: RRR Warm and well perfused extremities ABDOMEN: Non-distended SKIN: No rashes or bruising : Deferred NEUROLOGIC: Postictal, confused, poorly and tubes and lines MUSCULOSKELETAL: Moving all extremities with no apparent injury PSYCHIATRIC: Unable to assess Course Vital Signs 06/24/23 06/24/23 18:35 22:08 Pulse Rate 78 72 Respiratory 18 18 Rate Blood Pressure 139/81 111/66 O2 Sat by Pulse 98 97 Oximetry Medical Decision Making - Medical Decision Making Was pt. sent in by a medical professional or institution (, PA, HOME AND SCHOOL VISITOR, urgent care, hospital, or half-way...) When possible be specific @ -No Did you speak to anyone other than the patient for history (EMS, parent, family, police, friend...)? What history was obtained from this source @ -EMS Did you review nursing and triage notes (agree or disagree)? Why? @ -I reviewed and agree with nursing and triage notes Were old charts reviewed (outside hosp., previous admission, EMS record, old EKG, old radiological studies, urgent care reports/EKG's, half-way records)? Report findings @ -Previous admission, head CT and EEG were reviewed as well as neurology notes Differential Diagnosis (chest pain, altered mental status, abdominal pain women, abdominal pain men, vaginal bleeding, weakness, fever, dyspnea, syncope, headache, dizziness, GI bleed, back pain, seizure, CVA, palpatations, mental health)? @ -Differential seizure EKG interpreted by me (3pts min.). @ -EKG interpreted by me, EKG obtained due to seizure EKG obtained at 1832 rate is 73 rhythm is sinus normal axis, intervals, OK 166 QRS 84 QTC [address] elevations or evidence of ischemia or infarction or arrhythmia. X-rays interpreted by me (1pt min.). @ -None done CT interpreted by me (1pt min.). @ -None done U/S interpreted by me (1pt. min.). @ -None done What testing was considered but not performed or refused? (CT, X-rays, U/S, labs)? Why? @ -None What meds were considered but not given or refused? Why? @ -None Did you discuss the management of the patient with other professionals (professionals i.e. , PA, HOME AND SCHOOL VISITOR, lab, RT, psych nurse, web content & social media manager, service associate, teacher, personnel training officer, casework specialist)? Give summary @ -No Was smoking cessation discussed for >3mins.? @ -No Was critical care preformed (if so, how long)? @ -No Were there social determinants of health that impacted care today? How? (Homelessness, low income, unemployed, alcoholism, drug addiction, transportation, low edu. Level, literacy, decrease access to med. care, custodial, rehab)? @ -No Was there de-escalation of care discussed even if they declined (Discuss DNR or withdrawal of care, Hospice)? DNR status @ -No What co-morbidities impacted this encounter? (DM, HTN, Smoking, COPD, CAD, Cancer, CVA, ARF, Chemo, Hep., AIDS, mental health diagnosis, sleep apnea, morbid obesity)? @ -Dementia Was patient admitted / discharged? Hospital course, mention meds given and route, prescriptions, significant lab abnormalities, going to OR and other pertinent info. @ -Admit The patient was seen and evaluated upon arrival patient is postictal. The patient did vomit. The patient received Ativan and Keppra was ordered. Patient received 1 L IV fluid bolus. Patient's arrived at bedside and was speaking to her she was somewhat more confused than usual but was awake and talking. The patient then had another seizure and remained post ictal somewhat agitated. was emotionally distressed by this and decided to leave the hospital. Received Geodon for her agitation. Patient was taken to CT for imaging however being transported made her agitation she would not cooperate with CT. PPatient care discussed with Daryl of [facility], considering patient has normal vitals, recent CT and history of seizures we will admit for recurrent seizures without completed head CT at this time. Undiagnosed new problem with uncertain prognosis? @ -No Drug Therapy requiring intensive monitoring for toxicity (Heparin, Nitro, Insulin, Cardizem)? @ -No Were any procedures done? @ -No Diagnosis/symptom? @ - Recurrent seizures Acute, or Chronic, or Acute on Chronic? @ -default Uncomplicated (without systemic symptoms) or Complicated (systemic symptoms)? @ -default Side effects of treatment? @ -No Exacerbation, Progression, or Severe Exacerbation? @ -No Poses a threat to life or bodily function? How? (Chest pain, [place], PR, pneumonia, PE, COPD, DKA, ARF, appy, cholecystitis, CVA, Diverticulitis, Homicidal, Suicidal, threat to staff... and all critical care pts) @ -yes - Lab Data Result diagrams: 06/24/23 18:44 06/24/23 20:46 Lab Results 06/24/23 06/24/23 Range/Units 18:44 20:46 WBC 9.2 (3.8-10.6) k/uL RBC 4.18 (3.80-5.40) m/uL Hgb 14.3 (11.4-16.0) gm/dL Hct 41.6 (34.0-46.0) % MCV 99.4 (80.0-100.0) fL MCH 34.1 (25.0-35.0) pg MCHC 34.3 (31.0-37.0) g/dL RDW 12.5 (11.5-15.5) % Plt Count 309 (150-450) k/uL MPV 7.0 Neutrophils % 80 % Lymphocytes % 12 % Monocytes % 6 % Eosinophils % 1 % Basophils % 0 % Neutrophils # 7.4 (1.3-7.7) k/uL Lymphocytes # 1.1 (1.0-4.8) k/uL Monocytes # 0.5 (0-1.0) k/uL Eosinophils # 0.1 (0-0.7) k/uL Basophils # 0.0 (0-0.2) k/uL Sodium 124 L (137-145) mmol/L Potassium 4.3 (3.5-5.1) mmol/L Chloride 91 L (98-107) mmol/L Carbon Dioxide 24 (22-30) mmol/L Anion Gap 9 mmol/L BUN 13 (7-17) mg/dL Creatinine 0.42 L (0.52-1.04) mg/dL Est GFR (CKD-EPI)AfAm >90 (>60 ml/min/1.73 sqM) Est GFR (CKD-EPI)NonAf >90 (>60 ml/min/1.73 sqM) Glucose 173 H (74-99) mg/dL Calcium 8.5 (8.4-10.2) mg/dL Magnesium 1.9 (1.6-2.3) mg/dL Total Bilirubin 0.5 (0.2-1.3) mg/dL AST 36 (14-36) U/L ALT 37 H (4-34) U/L Alkaline Phosphatase 240 H (38-126) U/L Total Protein 6.4 (6.3-8.2) g/dL Albumin 3.8 (3.5-5.0) g/dL TSH 3.360 (0.465-4.680) mIU/L Disposition Clinical Impression: Generalized seizure, Hyponatremia, Acute encephalopathy, Altered mental status Disposition: ADMITTED IP TO THIS [facility] Instructions (If sedation given, give patient instructions): Seizure/Epilepsy Discharge Instructions & Follow-Up Is patient prescribed a controlled substance at d/c from ED?: No Referrals: Michael Adler MD [Primary Care Provider] - 1-2 days
[2023-06-24] MEDS ORDERED: ONDANSETRON 4 MG/2 ML VIAL IVP STA (18:24)
[2023-06-24 19:04] LABS: Basophils % (A) 0 %; Eosinophils # (A) 0.1 k/uL (0-0.7); Eosinophils % (A) 1 %; HCT 41.6 % (34.0-46.0); HGB 14.3 gm/dL (11.4-16.0); Lymphocytes # (A) 1.1 k/uL (1.0-4.8); Lymphocytes % (A) 12 %; MCH 34.1 pg (25.0-35.0); MCHC 34.3 g/dL (31.0-37.0); MCV 99.4 fL (80.0-100.0); Monocytes # (A) 0.5 k/uL (0-1.0); Monocytes % (A) 6 %; Neutrophils # (A) 7.4 k/uL (1.3-7.7); Neutrophils % (A) 80 %; Platelet Count 309 k/uL (150-450); RBC 4.18 m/uL (3.80-5.40); RDW 12.5 % (11.5-15.5); WBC 9.2 k/uL (3.8-10.6)
[2023-06-24] MEDS ORDERED: levETIRAcetam IV 500 MG/5 ML VIAL IVP STA (19:04)
[2023-06-24] MEDS ORDERED: ZIPRASIDONE 20 MG VIAL IM STA (20:45)
[2023-06-24 21:08] LABS: ALT 37 U/L (4-34); AST 36 U/L (14-36); African American GFR (CKD) >90 (>60 ml/min/1.73 sqM); Albumin 3.8 g/dL (3.5-5.0); Alkaline Phosphatase 240 U/L (38-126); Anion Gap 9 mmol/L; Blood Urea Nitrogen 13 mg/dL (7-17); Calcium 8.5 mg/dL (8.4-10.2); Carbon Dioxide 24 mmol/L (22-30); Chloride 91 mmol/L (98-107); Glucose 173 mg/dL (74-99); Magnesium 1.9 mg/dL (1.6-2.3); Non-African American GFR(CKD) >90 (>60 ml/min/1.73 sqM); Potassium 4.3 mmol/L (3.5-5.1); Sodium 124 mmol/L (137-145); Total Bilirubin 0.5 mg/dL (0.2-1.3); Total Protein 6.4 g/dL (6.3-8.2)
[2023-06-25] MEDS ORDERED: ZIPRASIDONE 20 MG VIAL IM STA (00:12)
[2023-06-25] MEDS ORDERED: ONDANSETRON 4 MG/2 ML VIAL IVP PRN (00:22)
[2023-06-25] MEDS ORDERED: NALOXONE 0.4 MG/ML 1 ML VIAL IV PRN (00:22)
[2023-06-25] MEDS ORDERED: LORazepam 2 MG/ML INJ IV PRN ×2 (00:29→09:18)
[2023-06-25] MEDS: SODIUM CHLORIDE 0.9% 1,000 ML IV SCH ×2 (03:06→16:02)
[2023-06-25] MEDS ORDERED: DEXTROSE 50% SYRINGE 50 ML IVP PRN ×2 (08:38)
[2023-06-25 08:44] LABS: Glucose,Whole Blood 136 mg/dL (70-110)
[2023-06-25] MEDS: metFORMIN 500 MG TAB PO SCH (08:51)
[2023-06-25] MEDS: amLODIPine 5 MG TAB PO SCH (08:51)
[2023-06-25] MEDS: LEVOTHYROXINE 50 MCG TAB PO SCH (08:51)
[2023-06-25] MEDS ORDERED: LACOSAMIDE 50 MG TABLET PO SCH (09:00)
[2023-06-25] MEDS ORDERED: hydrALAZINE HCL 20 MG/ML 1 ML VIAL IVP PRN (09:26)
[2023-06-25 09:38] LABS: African American GFR (CKD) >90 (>60 ml/min/1.73 sqM); Anion Gap 12 mmol/L; Blood Urea Nitrogen 9 mg/dL (7-17); Calcium 8.8 mg/dL (8.4-10.2); Carbon Dioxide 22 mmol/L (22-30); Chloride 95 mmol/L (98-107); Glucose 134 mg/dL (74-99); Non-African American GFR(CKD) >90 (>60 ml/min/1.73 sqM); Potassium 4.2 mmol/L (3.5-5.1); Sodium 129 mmol/L (137-145)
[2023-06-25 09:53] LABS: Basophils # (A) 0.1 k/uL (0-0.2); Basophils % (A) 1 %; Eosinophils # (A) 0.1 k/uL (0-0.7); Eosinophils % (A) 1 %; HCT 42.5 % (34.0-46.0); HGB 14.1 gm/dL (11.4-16.0); Lymphocytes # (A) 1.1 k/uL (1.0-4.8); Lymphocytes % (A) 15 %; MCH 33.9 pg (25.0-35.0); MCHC 33.2 g/dL (31.0-37.0); MCV 101.9 fL (80.0-100.0); Macrocytosis Slight; Mean Platelet Volume 7.6; Monocytes # (A) 0.7 k/uL (0-1.0); Monocytes % (A) 9 %; Neutrophils # (A) 5.6 k/uL (1.3-7.7); Neutrophils % (A) 73 %; Platelet Count 242 k/uL (150-450); RBC 4.17 m/uL (3.80-5.40); RDW 12.6 % (11.5-15.5); WBC 7.7 k/uL (3.8-10.6)
--- NOTE | 2023-06-25 11:15 | CT ---
EXAMINATION TYPE: CT brain wo con CT DLP: 1212.4 mGycm, Automated exposure control for dose reduction was used. DATE OF EXAM: 06/25/2023 11:01 AM COMPARISON: 05/05/2023. CLINICAL INDICATION:Female, 72 years old with history of altered, ams TECHNIQUE: Brain: Axial CT images of the brain were obtained with coronal and sagittal reformats created and rev iewed. Contrast used: None. Oral contrast used: None. FINDINGS: Brain: Extra-axial spaces: No abnormal extra-axial fluid collections. Ventricular system: Dilatation in proportion to cerebral atrophy. Cerebral parenchyma: Cerebral atrophy. No acute intraparenchymal hemorrhage or mass effect. The zarco -white junction is well differentiated. Scattered hypoattenuating areas are seen within the white mat ter. Cerebellum: Unremarkable. Mass effect: No evidence of midline shift. Intracranial vasculature: Atherosclerotic calcifications of the intracranial vessels. Soft tissues: Normal. Calvarium/osseous structures: No depressed skull fracture. Paranasal sinuses and mastoid air cells: Mild scattered paranasal sinus disease. Visualized orbits: Left aphakia. IMPRESSION: 1. No acute intracranial process. 2. Nonspecific white matter changes, likely secondary to chronic small vessel ischemic disease.
[2023-06-25 11:24] LABS: Glucose,Whole Blood 135 mg/dL (70-110)
--- NOTE | 2023-06-25 13:37 | P.HPIM ---
History of Present Illness H&P Date: 06/25/23 History of present illness; patient 72-year-old lady with past medical signific ant for hypertension, diabetes mellitus, seizure presented to the ER because of reported seizure at home. Patient was admitted in April of this year with similar complaint at that time patient had detailed neurological workup was started on Vimpat for seizures. History was obtained from patient's , according to him patient was all right yesterday afternoon when patient has been came to check on her and asked her if she needed anything, patient was staring at him and was not able to supply, then she started shaking uncontrollably, patient became concerned and immediately called EMS. Patient did not notice any fecal or urinary incontinence. There was no tongue biting. EMS reached the spot and brought her to the ER. Patient was post ictal when she came to the ER. According to the EMR, had another seizure while in the ER, Initial lab work done in the ER showed WBC 9.2, hemoglobin 14.3, platelet count 309, sodium 124, potassium 4.3, BUN/creatinine 13, creatinine 0.42, glucose 173 AST 36, ALT 37, TSH 3.360, COVID-19 detected EKG done in the ER showed heart rate of 73 , no ST segment elevation or depression seen, no T-wave inversions seen. Patient admitted to internal medicine service REVIEW OF SYSTEMS: Unable to obtain a review of system as patient is currently post ictal PHYSICAL EXAMINATION: GENERAL: The patient is alert and responds to her name, not in any acute distress. Well developed, well nourished. HEENT: Pupils are round and equally reacting to light. EOMI. No scleral icterus. No conjunctival pallor. Normocephalic, atraumatic. No pharyngeal erythema. No thyromegaly. CARDIOVASCULAR: S1 and S2 present. No murmurs, rubs, or gallops. PULMONARY: Chest is clear to auscultation, no wheezing or crackles. ABDOMEN: Soft, nontender, nondistended, normoactive bowel sounds. No palpable organomegaly. MUSCULOSKELETAL: No joint swelling or deformity. EXTREMITIES: No cyanosis, clubbing, or pedal edema. NEUROLOGICAL: Moving all extremities, patient ambulated with help of nursing staff SKIN: No rashes. Assessment and plan Seizures Acute metabolic encephalopathy Hyponatremia mild transaminitis Diabetes mellitus Hypertension, uncontrolled on admission Hyperlipidemia Hypothyroidism Monitor vital signs Monitor CBC Monitor CMP Continue telemetry monitoring Continue with the neuro check Continue with IV fluids Continue Vimpat CT brain ordered EEG ordered Monitor blood sugar levels, continue sliding scale insulin Neurology consulted Labs and medication were reviewed.. Continue same treatment. Continue with symptomatic treatment. Resume home medication. Monitor labs and vitals. DVT and GI prophylaxis. Further recommendations as per clinical course of the p atient Dictation was produced using [employer]asm[employer] dictation software. please excuse any grammatical, word or spelling errors. Past Medical History Past Medical History: Diabetes Mellitus, Hyperlipidemia Additional Past Medical History / Comment(s): hypothyroid History of Any Multi-Drug Resistant Organisms: None Reported Past Surgical History: No Surgical Hx Reported, Section Additional Past Surgical History / Comment(s): 1982 Past Anesthesia/Blood Transfusion Reactions: No Reported Reaction Past Psychological History: No Psychological Hx Reported Past Alcohol Use History: None Reported Past Drug Use History: None Reported - Past Family History Father Additional Family Medical History / Comment(s): Father at the age of 62 yrs from "natural causes." Mother Additional Family Medical History / Comment(s): Mother is due to house fire. Medications and Allergies Home Medications Medication Instructions Recorded Confirmed Type Aspirin [Adult Low Dose Aspirin EC] 81 mg PO HS 09/11/15 06/24/23 History Atorvastatin [Lipitor] 10 mg PO HS 08/09/17 06/24/23 History Cholecalciferol [Vitamin D3 (25 25 mcg PO HS 05/05/23 06/24/23 History Mcg = 1000 Iu)] Levothyroxine Sodium [Synthroid] 50 mcg PO DAILY 05/05/23 06/24/23 History Multivit-Min/FA/Lycopen/Lutein 1 tab PO HS 05/05/23 06/24/23 History [Centrum Silver Tablet] Vit C/E/Zn/Coppr/Lutein/Zeaxan 1 cap PO HS 05/05/23 06/24/23 History [Preservision Areds 2 Softgel] Lacosamide [Vimpat] 50 mg PO BID #60 tab 05/09/23 06/24/23 Rx amLODIPine [Norvasc] 5 mg PO DAILY #30 tab 05/09/23 06/24/23 Rx metFORMIN HCL [Glucophage] 500 mg PO DAILY #30 tablet 05/09/23 06/24/23 Rx Allergies Allergy/AdvReac Type Severity Reaction Status Date / Time lactose AdvReac Diarrhea Verified 06/24/23 22:56 Physical Exam Vitals: Vital Signs Temp Pulse Pulse Resp BP BP Pulse Ox 06/25/23 08:00 95.6 F L 75 19 190/81 100 06/25/23 05:02 64 18 133/85 100 06/25/23 03:00 69 20 158/84 99 06/25/23 00:27 83 18 183/95 98 06/24/23 22:08 72 18 111/66 97 06/24/23 18:35 78 18 139/81 98 Intake and Output 06/24/23 06/25/23 06/25/23 22:59 06:59 14:59 Other: Voiding Method Diaper Incontinent Incontinent # Voids 1 Weight 65.771 kg Results CBC & Chem 7: 06/25/23 08:58 06/25/23 08:58 Labs: Abnormal Lab Results - Last 24 Hours (Table) 06/24/23 06/25/23 06/25/23 Range/Units 20:46 01:05 08:43 Sodium 124 L (137-145) mmol/L Chloride 91 L (98-107) mmol/L Creatinine 0.42 L (0.52-1.04) mg/dL Glucose 173 H (74-99) mg/dL POC Glucose (mg/dL) 136 H (70-110) mg/dL ALT 37 H (4-34) U/L Alkaline Phosphatase 240 H (38-126) U/L SARS-CoV-2 (PCR) Detected A (Not Detectd)
[2023-06-25] MEDS: INSULIN ASPART (NovoLOG) 100 UNIT/ML VIAL SQ SCH ×3 (14:09→21:34)
[2023-06-25] MEDS ORDERED: LACOSAMIDE 50 MG TABLET PO ONE (15:45)
[2023-06-25 16:57] LABS: Glucose,Whole Blood 194 mg/dL (70-110)
[2023-06-25] MEDS: LORazepam 2 MG/ML INJ IV PRN (18:49)
[2023-06-25 19:43] LABS: Appearance,Urine Cloudy (Clear); Bacteria,Urine Many /hpf; Bilirubin,Urine Negative (Negative); Blood,Urine Negative (Negative); Color,Urine Colorless; Glucose,Urine (UA) 2+ (Negative); Hyaline Casts,Urine 1 /lpf (0-2); Ketones,Urine Negative (Negative); Leukocyte Esterase,Urine Large (Negative); Nitrite,Urine Negative (Negative); PH, Urine 6.5 (5.0-8.0); Protein,Urine Negative (Negative); RBC,Urine 1 /hpf (0-5); Specific Gravity,Urine 1.008 (1.001-1.035); Squamous Epithelial Cell,Urine <1 /hpf (0-4); Urobilinogen,Urine <2.0 mg/dL (<2.0); WBC,Urine >182 /hpf (0-5)
[2023-06-25 20:28] LABS: Glucose,Whole Blood 167 mg/dL (70-110)
[2023-06-25] MEDS: LACOSAMIDE 50 MG TABLET PO SCH (21:34)
[2023-06-25] MEDS: ASPIRIN 81 MG PO SCH (21:34)
[2023-06-25] MEDS: ATORVASTATIN 10 MG TAB PO SCH (21:34)
[2023-06-26] MEDS: SODIUM CHLORIDE 0.9% 1,000 ML IV SCH ×2 (03:46→16:08)
[2023-06-26 05:34] LABS: Glucose,Whole Blood 132 mg/dL (70-110)
[2023-06-26] MEDS: INSULIN ASPART (NovoLOG) 100 UNIT/ML VIAL SQ SCH ×4 (06:02→22:24)
[2023-06-26] MEDS: LEVOTHYROXINE 50 MCG TAB PO SCH (06:25)
[2023-06-26] MEDS: metFORMIN 500 MG TAB PO SCH (06:25)
[2023-06-26] MEDS: LACOSAMIDE 50 MG TABLET PO SCH ×2 (08:08→22:24)
[2023-06-26] MEDS: amLODIPine 5 MG TAB PO SCH (08:08)
--- NOTE | 2023-06-26 09:05 | P.CNNES ---
History of Present Illness Consult date: 06/25/23 Requesting physician: Kyung Pastor Reason for Consult: Recurrent seizures History of Present Illness: Patient is a 72-year-old female came to the hospital by ambulance yesterday at 6:08 PM for a breakthrough seizure. Patient has been seen by neurology team with recent admission, initially seen by Dr. Gutierrez, and I followed up once on 05/07/2023. EEG was reviewed by Dr. Gutierrez, which reported focal slowing seen o emelia the right temporal region and epileptiform discharges seen over the T6 electrode which increases risk for focal seizures and status epilepticus. Dr. Gutierrez started the patient on Vimpat 50 mg twice a day. MRI of the brain with and without contrast revealed no recent infarct. Mild to moderate diffuse cerebral atrophy and chronic small vessel ischemic disease. No suspicious enhancement. Patient was supposed to follow-up with her neurologist Dr. Payton, but they did not approve appointment till July 2023. They have not seen any neurologist since discharge from the hospital, and therefore stayed on same dose of Vimpat 50 mg twice a day. Patient's mentioned that patient has about 5 total seizures in the last 5 years. On review of the records, patient had presented to [facility] for an episode of confusion on 09/07/2015 of unclear cause (probably the first seizure). Then she had a presentation to the ER on 08/09/2017 for a seizure. Regarding this current event, he mentions that she was otherwise fine, and he asked her if she wanted to have a dinner but she declined. Patient's told her that he will get her a cup of coffee. When he gave her a cup of coffee, and he started talking, she did not answer. Patient suddenly got up, went to the kitchen and said some random statement "how long is this been going on", came back, sat on the couch, started rambling, and then started staring at the curtain by the window and then at that time she did not know her and started shaking and convulsing. He helped her get onto the floor and at that t reshma she did not know anything was gurgling. He called 911. Patient's mentioned that she had a "little seizure" in the ambulance and also another one in the hospital. She did not bite her tongue, and did not lose control of urine. As per EMS flow sheet, when they arrived at the scene, found patient sitting on the floor with fire personnel at her side. They mentioned that patient was se izing prior to their arrival and had not seized since they were on the scene. It was mentioned that patient had a seizure lasting for 5 minutes while she was in her recliner, and her moved her to the floor. Patient had vomited prior to EMS arrival. Patient was awake but unable to speak coherent words or follow commands. Patient's mentioned that she was diagnosed with seizure disorder last month and has not experienced one since she has been on medication for it. Patient was very uncooperative. An IV was started in the patient's right forearm. Patient remained confused and could not see any more than one word during in route to the hospital. Her blood pressure was 187/160, pulse rate 91, respiration 14, GCS 11, Patient's CBC is normal, sodium 124, potassium 4.3, renal functions are normal, blood glucose 173. AST 36, ALT 37. Hendricks virus PCR positive. Patient's vitals were stable and her temperature is 95.[address] head showed no acute intracranial process. Nonspecific white matter changes, likely secondary to chronic small vessel ischemic disease. I personally reviewed CT head, agreed with the findings. No history of tobacco or alcohol use. Review of Systems Constitutional: Denies chills, Denies fever Eyes: left blurred vision (Macular degenerqtion), denies diplopia, denies pain Ears: deny: decreased hearing, ear discharge Ears, nose, mouth and throat: Reports nasal congestion, Reports post-nasal drip, Denies headache, Denies sore throat Cardiovascular: Denies chest pain, Denies shortness of breath Respiratory: Denies cough, Denies excessive sputum Gastrointestinal: Denies abdominal pain, Denies diarrhea, Denies nausea, Denies vomiting Genitourinary: Reports urge incontinence, Reports urgency, Denies dysuria, Denies hematuria, Denies urinary frequency Musculoskeletal: Denies low back pain, Denies neck pain Integumentary: Denies pruritus, Denies rash Neurological: Reports as per HPI Psychiatric: Reports depression, Denies anxiety Past Medical History Past Medical History: Diabetes Mellitus, Hyperlipidemia, Hypertension, Seizure Disorder, Thyroid Disorder Additional Past Medical History / Comment(s): hypothyroid, seizures History of Any Multi-Drug Resistant Organisms: None Reported Past Surgical History: Section Additional Past Surgical History / Comment(s): 1982 Past Anesthesia/Blood Transfusion Reactions: No Reported Reaction Past Psychological History: No Psychological Hx Reported Additional Psychological History / Comment(s): Pt resides with her spouse. She is independent with adls and does cooking and cleaning in the home, does meds, driving. Her spouse states she has had memory impairment since her seizure in 2016. Smoking Status: Never smoker Past Alcohol Use History: None Reported Past Drug Use History: None Reported - Past Family History Father Additional Family Medical History / Comment(s): Father at the age of 62 yrs from "natural causes." Mother Additional Family Medical History / Comment(s): Mother is due to house fire. Medications and Allergies Home Medications Medication Instructions Recorded Confirmed Type Aspirin [Adult Low Dose Aspirin EC] 81 mg PO HS 09/11/15 06/24/23 History Atorvastatin [Lipitor] 10 mg PO HS 08/09/17 06/24/23 History Cholecalciferol [Vitamin D3 (25 25 mcg PO HS 05/05/23 06/24/23 History Mcg = 1000 Iu)] Levothyroxine Sodium [Synthroid] 50 mcg PO DAILY 05/05/23 06/24/23 History Multivit-Min/FA/Lycopen/Lutein 1 tab PO HS 05/05/23 06/24/23 History [Centrum Silver Tablet] Vit C/E/Zn/Coppr/Lutein/Zeaxan 1 cap PO HS 05/05/23 06/24/23 History [Preservision Areds 2 Softgel] Lacosamide [Vimpat] 50 mg PO BID #60 tab 05/09/23 06/24/23 Rx amLODIPine [Norvasc] 5 mg PO DAILY #30 tab 05/09/23 06/24/23 Rx metFORMIN HCL [Glucophage] 500 mg PO DAILY #30 tablet 05/09/23 06/24/23 Rx Allergies Allergy/AdvReac Type Severity Reaction Status Date / Time lactose AdvReac Diarrhea Verified 06/24/23 22:56 Physical Examination - Vital Signs Vital Signs: Vital Signs Temp Pulse Pulse Resp BP BP Pulse Ox 06/25/23 08:00 95.6 F L 75 19 190/81 100 06/25/23 05:02 64 18 133/85 100 06/25/23 03:00 69 20 158/84 99 06/25/23 00:27 83 18 183/95 98 06/24/23 22:08 72 18 111/66 97 06/24/23 18:35 78 18 139/81 98 Intake and Output 06/24/23 06/25/23 06/25/23 22:59 06:59 14:59 Other: Voiding Method Diaper Incontinent Incontinent # Voids 1 Weight 65.771 kg 65.771 kg Patient is an elderly female, very pleasant, in no acute distress. Patient is alert awake oriented to time place and person. She knows it is 06/25/2023 and that she is in [facility] in [facility] and name of the current president. Speech and language functions are normal. Patient can name and repeat very well. No aphasia or dysarthria. Attention, concentration and fund of knowledge is adequate. On cranial nerve examination, pupils are equal, round and reacting to light, visual harrison are full on confrontation, with no neglect on double simultaneous stimulation. Extraocular muscles are intact with no nystagmus. Face is symmetric, tongue protrudes to the midline. Palatal elevation and sensation normal, hearing and shoulder shrug normal, facial sensation normal. On muscle strength testing, there is no pronator drift and the strength is normal in arms and legs distally and proximally. Deep tendon reflexes are symmetric 2 all over and plantars are downgoing bilaterally. Sensory to touch is equal with no neglect on double simultaneous stimulation. Cerebellar function showed no ataxia for [id number]-xs-reta testing. No dysd iadochokinesia. No ataxia for akci-yf-rpsv testing on either side. Tone and bulk of muscles normal. Gait deferred.. On general examination, there is no carotid bruit or murmur, S1-S2 audible. Nicole st is clear on consultation. Abdomen is soft nontender. No organomegaly, bowel sounds present. Peripheral pulses are present. No peripheral edema. Results - Laboratory Findings CBC and BMP: 06/25/23 08:58 06/25/23 08:58 Abnormal Lab Findings: Abnormal Labs 06/24/23 06/25/23 06/25/23 20:46 01:05 08:43 MCV Sodium 124 L Chloride 91 L Creatinine 0.42 L Glucose 173 H POC Glucose (mg/dL) 136 H ALT 37 H Alkaline Phosphatase 240 H SARS-CoV-2 (PCR) Detected A 06/25/23 06/25/23 06/25/23 08:58 08:58 11:22 MCV 101.9 H Sodium 129 L Chloride 95 L Creatinine 0.36 L Glucose 134 H POC Glucose (mg/dL) 135 H ALT Alkaline Phosphatase SARS-CoV-2 (PCR) Assessment and Plan Assessment: * Seizure disorder, came with breakthrough seizures. * Diabetes * Hypothyroidism * Probable mild cognitive impairment Plan: * Patient has seizure disorder. She is currently on Vimpat very low dose 50 mg twice a day. Patient was supposed to follow up with neurologist outpatient after her last seizure on 05/07/2023 but they have not been able to see the neurologist. * We will increase Vimpat to 100 mg twice a day. * Recommend patient follow up with neurologist in one week. May have to go further up on the dose to 150 mg twice a day after one week. * Patient informed of [place] state law of no driving unless seizure free for 6 months, climbing ladders, operating dangerous machinery or unsupervised swimming. * Neurologically clear for discharge, if she remains stable overnight. Thank you for the consult.
[2023-06-26 10:02] LABS: African American GFR (CKD) >90 (>60 ml/min/1.73 sqM); Anion Gap 6 mmol/L; Blood Urea Nitrogen 11 mg/dL (7-17); Calcium 8.3 mg/dL (8.4-10.2); Carbon Dioxide 24 mmol/L (22-30); Chloride 98 mmol/L (98-107); Glucose 124 mg/dL (74-99); Non-African American GFR(CKD) >90 (>60 ml/min/1.73 sqM); Potassium 4.2 mmol/L (3.5-5.1); Sodium 128 mmol/L (137-145)
[2023-06-26 11:08] LABS: Glucose,Whole Blood 179 mg/dL (70-110)
[2023-06-26] MEDS: SODIUM CHLORIDE TAB 1 GM TAB PO SCH ×2 (12:03→22:24)
--- NOTE | 2023-06-26 13:04 | P.PN ---
Subjective Progress Note Date: 06/26/23 patient 72-year-old lady with past medical significant for hypertension, diabetes mellitus, seizure presented to the ER because of reported seizure at home. Patient was admitted in April of this year with similar complaint at that time patient had detailed neurological workup was started on Vimpat for seizures. History was obtained from patient's , according to him patient was all right yesterday afternoon when patient has been came to check on her and asked her if she needed anything, patient was staring at him and was not able to supply, then she started shaking uncontrollably, patient became concerned and immediately called EMS. Patient did not notice any fecal or urinary incontinence. There was no tongue biting. EMS reached the spot and brought her to the ER. Patient was post ictal when she came to the ER. According to the EMR, had another seizure while in the ER, Initial lab work done in the ER showed WBC 9.2, hemoglobin 14.3, platelet count 309, sodium 124, potassium 4.3, BUN/creatinine 13, creatinine 0.42, glucose 173 AST 36, ALT 37, TSH 3.360, COVID-19 detected EKG done in the ER showed heart rate of 73 , no ST segment elevation or depression seen, no T-wave inversions seen. Patient admitted to internal medicine service 06/26. Patient seen and examined. Patient much more awake and alert this morning. at bedside. Sodium level this morning is 128. Neurology evaluated the patient, recommended increasing dose of Vimpat to 100 mg twice a day REVIEW OF SYSTEMS: CONSTITUTIONAL: No fever, no malaise,. CARDIOVASCULAR: No chest pain, no palpitations, no syncope. PULMONARY: No shortness of breath, no cough, GASTROINTESTINAL: No diarrhea, no nausea, no vomiting, no abdominal pain. NEUROLOGICAL: No headaches, no weakness, PHYSICAL EXAMINATION: GENERAL: The patient is alert , not in any acute distress. Well developed, well nourished. HEENT: Pupils are round and equally reacting to light. EOMI. No scleral icterus. No conjunctival pallor. Normocephalic, atraumatic. No pharyngeal erythema. No thyromegaly. CARDIOVASCULAR: S1 and S2 present. No murmurs, rubs, or gallops. PULMONARY: Chest is clear to auscultation, no wheezing or crackles. ABDOMEN: Soft, nontender, nondistended, normoactive bowel sounds. No palpable organomegaly. MUSCULOSKELETAL: No joint swelling or deformity. EXTREMITIES: No cyanosis, clubbing, or pedal edema. NEUROLOGICAL: Gross neurological examination did not reveal any focal deficits. SKIN: No rashes. Assessment and plan Seizures Acute metabolic encephalopathy Covid 19 infection Hyponatremia mild transaminitis Diabetes mellitus Hypertension, uncontrolled on admission Hyperlipidemia Hypothyroidism Monitor vital signs Monitor CBC Monitor CMP Continue telemetry monitoring Continue with the neuro check Continue with IV fluids Continue Vimpat 100 mg twice a day per neurology Monitor blood sugar levels, continue sliding scale insulin Neurology following Labs and medication were reviewed.. Continue same treatment. Continue with symptomatic treatment. Resume home medication. Monitor labs and vitals. DVT and GI prophylaxis. Further recommendations as per clinical course of the patient Dictation was produced using [employer] dictation software. please excuse any grammatical, word or spelling errors. Objective - Vital Signs Vital signs: Vital Signs Temp 97.3 F L 06/26/23 06:53 Pulse 71 06/26/23 09:44 Resp 19 06/26/23 09:44 BP 117/64 06/26/23 08:12 Pulse Ox 96 06/26/23 09:33 FiO2 Intake & Output 06/25/23 06/26/23 06/26/23 18:59 06:59 18:59 Intake Total 180 Output Total 700 1700 Balance -700 -1700 180 Weight 65.771 kg Intake: Oral 180 Output: Urine 700 1700 Other: Voiding Method Incontinent External Catheter External Catheter # Voids 1 1 - Labs CBC & Chem 7: 06/25/23 08:58 06/26/23 04:46 Labs: Abnormal Lab Results - Last 24 Hours (Table) 06/25/23 06/25/23 06/25/23 Range/Units 16:55 18:00 20:26 Sodium (137-145) mmol/L Creatinine (0.52-1.04) mg/dL Glucose (74-99) mg/dL POC Glucose (mg/dL) 194 H 167 H (70-110) mg/dL Calcium (8.4-10.2) mg/dL Urine Appearance Cloudy H (Clear) Urine Glucose (UA) 2+ H (Negative) Ur Leukocyte Esterase Large H (Negative) Urine WBC >182 H (0-5) /hpf Urine WBC Clumps Few H (None) /hpf Urine Bacteria Many H (None) /hpf 06/26/23 06/26/23 06/26/23 Range/Units 04:46 05:32 11:07 Sodium 128 L (137-145) mmol/L Creatinine 0.46 L (0.52-1.04) mg/dL Glucose 124 H (74-99) mg/dL POC Glucose (mg/dL) 132 H 179 H (70-110) mg/dL Calcium 8.3 L (8.4-10.2) mg/dL Urine Appearance (Clear) Urine Glucose (UA) (Negative) Ur Leukocyte Esterase (Negative) Urine WBC (0-5) /hpf Urine WBC Clumps (None) /hpf Urine Bacteria (None) /hpf
--- NOTE | 2023-06-26 15:34 | P.PN ---
Subjective Progress Note Date: 06/26/23 Patient was seen for a follow-up. Patient had some seizure type spell, in which her feet were twitching for a few seconds. She also had an episode in which she had some white light flashing in the eye. Patient believes that this visual disturbance is typically an aura before her seizure. However after this visual disturbance, no seizure happened. Patient sodium also has gone down. Objective - Vital Signs Vital signs: Vital Signs Temp 97.3 F L 06/26/23 06:53 Pulse 71 06/26/23 09:44 Resp 19 06/26/23 09:44 BP 117/64 06/26/23 08:12 Pulse Ox 96 06/26/23 09:33 FiO2 Intake & Output 06/25/23 06/26/23 06/26/23 18:59 06:59 18:59 Intake Total 180 Output Total 700 1700 Balance -700 -1700 180 Weight 65.771 kg Intake: Oral 180 Output: Urine 700 1700 Other: Voiding Method Incontinent External Catheter External Catheter # Voids 1 1 - Exam Patient is alert and awake in no distress. Patient is drawing some pictures with colored pencils. Speech and language functions are normal. Examination unchanged. - Labs CBC & Chem 7: 06/25/23 08:58 06/26/23 04:46 Labs: Abnormal Lab Results - Last 24 Hours (Table) 06/25/23 06/25/23 06/25/23 Range/Units 16:55 18:00 20:26 Sodium (137-145) mmol/L Creatinine (0.52-1.04) mg/dL Glucose (74-99) mg/dL POC Glucose (mg/dL) 194 H 167 H (70-110) mg/dL Hemoglobin A1c (<=6.0) % Calcium (8.4-10.2) mg/dL Urine Appearance Cloudy H (Clear) Urine Glucose (UA) 2+ H (Negative) Ur Leukocyte Esterase Large H (Negative) Urine WBC >182 H (0-5) /hpf Urine WBC Clumps Few H (None) /hpf Urine Bacteria Many H (None) /hpf 06/26/23 06/26/23 06/26/23 Range/Units 04:46 04:46 05:32 Sodium 128 L (137-145) mmol/L Creatinine 0.46 L (0.52-1.04) mg/dL Glucose 124 H (74-99) mg/dL POC Glucose (mg/dL) 132 H (70-110) mg/dL Hemoglobin A1c 7.5 H (<=6.0) % Calcium 8.3 L (8.4-10.2) mg/dL Urine Appearance (Clear) Urine Glucose (UA) (Negative) Ur Leukocyte Esterase (Negative) Urine WBC (0-5) /hpf Urine WBC Clumps (None) /hpf Urine Bacteria (None) /hpf 06/26/23 Range/Units 11:07 Sodium (137-145) mmol/L Creatinine (0.52-1.04) mg/dL Glucose (74-99) mg/dL POC Glucose (mg/dL) 179 H (70-110) mg/dL Hemoglobin A1c (<=6.0) % Calcium (8.4-10.2) mg/dL Urine Appearance (Clear) Urine Glucose (UA) (Negative) Ur Leukocyte Esterase (Negative) Urine WBC (0-5) /hpf Urine WBC Clumps (None) /hpf Urine Bacteria (None) /hpf Assessment and Plan Assessment: * Seizure disorder, came with breakthrough seizures. * Diabetes * Hypothyroidism * Covid infection * Probable mild cognitive impairment Plan: * Patient has seizure disorder. She is currently on Vimpat very low dose 50 mg twice a day. Patient was supposed to follow up with neurologist outpatient after her last seizure on 05/07/2023 but they have not been able to see the neurologist. * We will increase Vimpat to 100 mg twice a day. * Patient has some questionable visual disturbance and another episode of transient feet twitching. Uncertain if these are seizures. * We will check EEG. * Patient's UA is abnormal. Will defer to IM if any antibiotics are needed. * Recommend patient follow up with neurologist in one week. May have to go further up on the dose to 150 mg twice a day after one week. * Patient informed of [place] state law of no driving unless seizure free for 6 months, climbing ladders, operating dangerous machinery or unsupervised swi mming. * Dr. Tyler Gutierrez will resume neurology service in the morning.
[2023-06-26 17:00] LABS: Glucose,Whole Blood 170 mg/dL (70-110)
[2023-06-26 19:01] LABS: Urine Alcohol Negative (Negative)
[2023-06-26 19:02] LABS: Urine Barbiturate Negative (Negative); Urine Cocaine Negative (Negative); Urine Methadone Negative (Negative); Urine Opiates Negative (Negative); Urine Phencyclidine Negative (Negative)
[2023-06-26 21:44] LABS: Glucose,Whole Blood 261 mg/dL (70-110)
[2023-06-26 22:11] LABS: Appearance,Urine Cloudy (Clear); Bacteria,Urine Few /hpf; Bilirubin,Urine Negative (Negative); Blood,Urine Trace (Negative); Color,Urine Colorless; Glucose,Urine (UA) 3+ (Negative); Ketones,Urine Negative (Negative); Leukocyte Esterase,Urine Large (Negative); Nitrite,Urine Positive (Negative); PH, Urine 5.5 (5.0-8.0); Protein,Urine Negative (Negative); RBC,Urine 6 /hpf (0-5); Specific Gravity,Urine 1.012 (1.001-1.035); Squamous Epithelial Cell,Urine <1 /hpf (0-4); Urobilinogen,Urine <2.0 mg/dL (<2.0); WBC,Urine 143 /hpf (0-5)
[2023-06-26] MEDS: ASPIRIN 81 MG PO SCH (22:24)
[2023-06-26] MEDS: ATORVASTATIN 10 MG TAB PO SCH (22:24)
[2023-06-27 05:51] LABS: Glucose,Whole Blood 154 mg/dL (70-110)
[2023-06-27] MEDS: SODIUM CHLORIDE 0.9% 1,000 ML IV SCH ×2 (06:00→17:25)
[2023-06-27] MEDS: LEVOTHYROXINE 50 MCG TAB PO SCH (06:31)
[2023-06-27] MEDS: INSULIN ASPART (NovoLOG) 100 UNIT/ML VIAL SQ SCH ×4 (06:31→21:10)
[2023-06-27] MEDS: metFORMIN 500 MG TAB PO SCH (06:31)
[2023-06-27] MEDS: LORazepam 2 MG/ML INJ IV PRN (08:36)
[2023-06-27] MEDS: LACOSAMIDE 50 MG TABLET PO SCH ×2 (09:08→20:12)
[2023-06-27] MEDS: SODIUM CHLORIDE TAB 1 GM TAB PO SCH ×3 (09:08→22:24)
[2023-06-27] MEDS: amLODIPine 5 MG TAB PO SCH (09:08)
[2023-06-27 11:00] LABS: Blood Urea Nitrogen 8.6 mg/dL (9.0-27.0); Calcium 9.5 mg/dL (8.7-10.3); Carbon Dioxide 23.7 mmol/L (21.6-31.8); Chloride 95 mmol/L (96-109); Glucose 157 mg/dL (70-110); Potassium 4.7 mmol/L (3.5-5.5); Sodium 130 mmol/L (135-145)
[2023-06-27 12:12] LABS: Glucose,Whole Blood 154 mg/dL (70-110)
[2023-06-27] MEDS: ENOXAPARIN 40 MG/0.4 ML SYRINGE SQ SCH (14:03)
[2023-06-27] MEDS: CHOLECALCIFEROL 25 MCG (1000 IU) TABLET PO SCH (14:03)
[2023-06-27] MEDS: ZINC SULFATE 220 MG CAP PO SCH (14:03)
--- NOTE | 2023-06-27 16:03 | P.PN ---
Subjective Progress Note Date: 06/27/23 I'm seeing the patient for first time during this admission. Please refer to Dr. Thapa's note for further details. It seems the patient presented with a breakthrough seizure. She does acknowledge she has history of seizure but could not tell me who she follows up with outpatient neurologist Che[facility]. It seems that Dr. Thapa increased event that to 100 mg twice a day during this admission. Upon seeing the patient is agitated with IV line and that feels is causing her to have a scar. Objective - Vital Signs Vital signs: Vital Signs Temp 98.4 F 06/27/23 12:46 Pulse 79 06/27/23 12:46 Resp 18 06/27/23 12:46 BP 111/67 06/27/23 12:46 Pulse Ox 99 06/27/23 12:46 FiO2 Intake & Output 06/26/23 06/27/23 06/27/23 18:59 06:59 18:59 Intake Total 430 Output Total 1400 Balance -970 Intake: Oral 430 Output: Urine 1400 Other: Voiding Method External Catheter # Voids 1 1 - Exam General is lying in bed and is not in acute distress. Neuro-patient is awake alert oriented to self place and time. She is confused at times talking nonsensical. His following simple commands. No facial weakness. No dysarthria Motor is lifting all extremities above gravity equally. - Labs CBC & Chem 7: 06/25/23 08:58 06/27/23 07:14 Labs: Abnormal Lab Results - Last 24 Hours (Table) 06/26/23 06/26/23 06/26/23 Range/Units 16:59 21:30 21:42 Sodium (135-145) mmol/L Chloride (96-109) mmol/L BUN (9.0-27.0) mg/dL Creatinine (0.6-1.5) mg/dL Glucose (70-110) mg/dL POC Glucose (mg/dL) 170 H 261 H (70-110) mg/dL Urine Appearance Cloudy H (Clear) Urine Glucose (UA) 3+ H (Negative) Urine Blood Trace H (Negative) Urine Nitrite Positive H (Negative) Ur Leukocyte Esterase Large H (Negative) Urine RBC 6 H (0-5) /hpf Urine WBC 143 H (0-5) /hpf Urine WBC Clumps Few H (None) /hpf Urine Bacteria Few H (None) /hpf SARS-CoV-2 (PCR) (Not Detectd) 06/27/23 06/27/23 06/27/23 Range/Units 05:50 07:14 12:11 Sodium 130 L (135-145) mmol/L Chloride 95 L (96-109) mmol/L BUN 8.6 L (9.0-27.0) mg/dL Creatinine 0.5 L (0.6-1.5) mg/dL Glucose 157 H (70-110) mg/dL POC Glucose (mg/dL) 154 H 154 H (70-110) mg/dL Urine Appearance (Clear) Urine Glucose (UA) (Negative) Urine Blood (Negative) Urine Nitrite (Negative) Ur Leukocyte Esterase (Negative) Urine RBC (0-5) /hpf Urine WBC (0-5) /hpf Urine WBC Clumps (None) /hpf Urine Bacteria (None) /hpf SARS-CoV-2 (PCR) (Not Detectd) 06/27/23 Range/Units 13:05 Sodium (135-145) mmol/L Chloride (96-109) mmol/L BUN (9.0-27.0) mg/dL Creatinine (0.6-1.5) mg/dL Glucose (70-110) mg/dL POC Glucose (mg/dL) (70-110) mg/dL Urine Appearance (Clear) Urine Glucose (UA) (Negative) Urine Blood (Negative) Urine Nitrite (Negative) Ur Leukocyte Esterase (Negative) Urine RBC (0-5) /hpf Urine WBC (0-5) /hpf Urine WBC Clumps (None) /hpf Urine Bacteria (None) /hpf SARS-CoV-2 (PCR) Detected A (Not Detectd) Assessment and Plan Assessment: * Seizure disorder, came with breakthrough seizures. Has acute COVID-19 infection and unsure if this is the reason behind the the breakthrough seizure in the patient's confusion. Well as has likely acute urinary tract infection. * Diabetes * Hypothyroidism * Covid infection * Probable mild cognitive impairment Plan: Dr. Thapa increased her Vimpat 50 [place] twice a day to 100 mg twice a day. Recommended Can Go up to 150 Twice a Day within a Week An EEG was completed and is pending report Per the [facility] because of the seizure, to avoid driving for 6 month until seizure-free, avoid heights, avoids swimming unassisted or using heavy machinery This seizure precaution We'll defer the rest of the medical management to primary team Upon discharge recommend the patient to follow-up with a neurologist as an outpatient within 1-2 weeks Time with Patient: Less than 30
[2023-06-27 16:33] LABS: Glucose,Whole Blood 151 mg/dL (70-110)
[2023-06-27] MEDS ORDERED: LORazepam 2 MG/ML INJ IV PRN (19:50)
[2023-06-27] MEDS: ASPIRIN 81 MG PO SCH (20:12)
[2023-06-27] MEDS: ATORVASTATIN 10 MG TAB PO SCH (20:12)
[2023-06-27 20:59] LABS: Glucose,Whole Blood 142 mg/dL (70-110)
--- NOTE | 2023-06-28 02:58 | EEG ---
ELECTROENCEPHALOGRAM REPORT CLINICAL HISTORY: This is a 72-year-old woman with breakthrough seizure. The video EEG is obtained to evaluate for seizure epileptiform activity. RELEVANT MEDICATION: Vimpat. EEG TYPE: A routine 21-channel EEG with video using the 10/20 electrode placement system. DESCRIPTION: Wakefulness and drowsiness are obtained. During awake state, the posterior-dominant rhythm consists of [id number]-[id number] voltage of 8 hertz activity that is well modulated and well sustained. There is no physiological stage 2 sleep architecture. There is no focal slowing. Interictal and ictal is none. ACTIVATION PROCEDURE: Photic stimulation did not evoke a posterior driving response. There is no abnormality during the photic stimulation. Hyperventilation is not performed. CLINICAL INTERPRETATION: This is an abnormal routine EEG. The background slowing is suggestive of mild encephalopathy. Otherwise, there is no focal slowing, epileptiform discharge, or seizure on the EEG. Clinical correlation is recommended. GERRY / LUCASN: [id number] /
[2023-06-28 06:39] LABS: Glucose,Whole Blood 143 mg/dL (70-110)
[2023-06-28] MEDS: metFORMIN 500 MG TAB PO SCH (06:46)
[2023-06-28] MEDS: LEVOTHYROXINE 50 MCG TAB PO SCH (06:46)
[2023-06-28] MEDS: INSULIN ASPART (NovoLOG) 100 UNIT/ML VIAL SQ SCH ×4 (06:46→20:27)
[2023-06-28 08:30] LABS: Basophils # (A) 0.08 X 10*3/uL (0.00-0.10); Eosinophils # (A) 0.16 X 10*3/uL (0.04-0.35); HCT 39.6 % (37.2-46.3); HGB 13.3 g/dL (12.0-15.0); Lymphocytes # (A) 1.53 X 10*3/uL (0.90-5.00); Lymphocytes % (A) 19.3 %; MCHC 33.6 g/dL (32.0-37.0); MCV 98.3 FL (80.0-97.0); Mean Platelet Volume 9.3 FL (9.5-12.2); Monocytes # (A) 0.76 X 10*3/uL (0.20-1.00); Monocytes % (A) 9.6 %; NRBC Per 100 WBC 0 X 10*3/uL (0.00-0.01); Neutrophils # (A) 5.35 X 10*3/uL (1.80-7.70); Neutrophils % (A) 67.5 %; Platelet Count 325 X 10*3/uL (140-440); RBC 4.03 X 10*6/uL (4.10-5.20); WBC 7.93 X 10*3/uL (4.50-10.00)
[2023-06-28] MEDS: CHOLECALCIFEROL 25 MCG (1000 IU) TABLET PO SCH (08:30)
[2023-06-28] MEDS: SODIUM CHLORIDE TAB 1 GM TAB PO SCH ×2 (08:30→20:27)
[2023-06-28] MEDS: amLODIPine 5 MG TAB PO SCH (08:30)
[2023-06-28] MEDS: SODIUM CHLORIDE 0.9% 1,000 ML IV SCH ×2 (08:30→21:41)
[2023-06-28] MEDS: ZINC SULFATE 220 MG CAP PO SCH (08:30)
[2023-06-28] MEDS: ENOXAPARIN 40 MG/0.4 ML SYRINGE SQ SCH (08:30)
[2023-06-28] MEDS: LACOSAMIDE 50 MG TABLET PO SCH ×2 (08:30→20:27)
[2023-06-28 09:05] LABS: BUN/Creat Ratio 20.33 Ratio (12.00-20.00); Blood Urea Nitrogen 12.2 mg/dL (9.0-27.0); Carbon Dioxide 24.5 mmol/L (21.6-31.8); Chloride 98 mmol/L (96-109); Glucose 132 mg/dL (70-110); Potassium 5.6 mmol/L (3.5-5.5); Sodium 133 mmol/L (135-145)
[2023-06-28 09:06] LABS: Calcium 9.1 mg/dL (8.7-10.3)
[2023-06-28 10:55] LABS: Glucose,Whole Blood 163 mg/dL (70-110)
[2023-06-28] MEDS ORDERED: SODIUM ZIRCONIUM CYCLOSILICATE 10 GM PACKET PO ONE (11:11)
--- NOTE | 2023-06-28 13:38 | P.PN ---
Subjective Progress Note Date: 06/28/23 I am following-up with patient and she is accompanied with her who feels she is doing better compared to yesterday. The nurse agrees that she is doing better today. No further seizure-like activity. Objective - Vital Signs Vital signs: Vital Signs Temp 98.3 F 06/28/23 08:00 Pulse 71 06/28/23 08:00 Resp 17 06/28/23 08:00 BP 160/80 06/28/23 08:00 Pulse Ox 97 06/28/23 08:00 FiO2 Intake & Output 06/27/23 06/28/23 06/28/23 18:59 06:59 18:59 Other: # Voids 3 2 1 - Exam General is lying in bed and is not in acute distress. Neuro-patient is awake alert oriented to self place and time. She is much less confused today and now more responsive. She is following simple commands. No facial weakness. No dysarthria Motor is lifting all extremities above gravity equally. - Labs CBC & Chem 7: 06/28/23 03:44 06/28/23 03:44 Labs: Abnormal Lab Results - Last 24 Hours (Table) 06/27/23 06/27/23 06/27/23 Range/Units 13:05 16:31 20:57 RBC (4.10-5.20) X 10*6/uL MCV (80.0-97.0) FL MCH (27.0-32.0) pg MPV (9.5-12.2) FL Immature Gran # (0.00-0.04) X 10*3/uL Sodium (135-145) mmol/L Potassium (3.5-5.5) mmol/L BUN/Creatinine Ratio (12.00-20.00) Ratio Glucose (70-110) mg/dL POC Glucose (mg/dL) 151 H 142 H (70-110) mg/dL SARS-CoV-2 (PCR) Detected A (Not Detectd) 06/28/23 06/28/23 06/28/23 Range/Units 03:44 03:44 06:38 RBC 4.03 L (4.10-5.20) X 10*6/uL MCV 98.3 H (80.0-97.0) FL MCH 33.0 H (27.0-32.0) pg MPV 9.3 L (9.5-12.2) FL Immature Gran # 0.05 H (0.00-0.04) X 10*3/uL Sodium 133 L (135-145) mmol/L Potassium 5.6 H (3.5-5.5) mmol/L BUN/Creatinine Ratio 20.33 H (12.00-20.00) Ratio Glucose 132 H (70-110) mg/dL POC Glucose (mg/dL) 143 H (70-110) mg/dL SARS-CoV-2 (PCR) (Not Detectd) 06/28/23 Range/Units 10:53 RBC (4.10-5.20) X 10*6/uL MCV (80.0-97.0) FL MCH (27.0-32.0) pg MPV (9.5-12.2) FL Immature Gran # (0.00-0.04) X 10*3/uL Sodium (135-145) mmol/L Potassium (3.5-5.5) mmol/L BUN/Creatinine Ratio (12.00-20.00) Ratio Glucose (70-110) mg/dL POC Glucose (mg/dL) 163 H (70-110) mg/dL SARS-CoV-2 (PCR) (Not Detectd) Microbiology - Last 24 Hours (Table) 06/26/23 21:30 Urine Culture - Preliminary Urine,Voided Gram Neg Bacilli Assessment and Plan Assessment: * Seizure disorder, came with breakthrough seizures. Has acute COVID-19 infection and unsure if this is the reason behind the the breakthrough seizure in the patient's confusion. Well as has likely acute urinary tract infection. * Diabetes * Hypothyroidism * Covid infection * Probable mild cognitive impairment Plan: Dr. Leigh increased her Vimpat 50 [place] twice a day to 100 mg twice a day. Recommended Can Go up to 150 Twice a Day within a Week EEG is abnormal. The background slowing suggestive of mild encephalopathy. Otherwise there is no focal slowing, epileptiform discharges or seizure on the EEG. Per the [place] DMV because of the seizure, to avoid driving for 6 month until seizure-free, avoid heights, avoids swimming unassisted or using heavy machinery This seizure precaution We'll defer the rest of the medical management to primary team Upon discharge recommend the patient to follow-up with a neurologist as an outpatient within 1-2 weeks. The plan was discussed with the patient's was at bedside and her nurse. There is no further neurological workup. We'll sign off. Please reconsult as needed. Time with Patient: Less than 30
[2023-06-28 16:24] LABS: Glucose,Whole Blood 236 mg/dL (70-110)
[2023-06-28 20:10] LABS: Glucose,Whole Blood 166 mg/dL (70-110)
[2023-06-28] MEDS: ATORVASTATIN 10 MG TAB PO SCH (20:27)
[2023-06-28] MEDS: ASPIRIN 81 MG PO SCH (20:27)
[2023-06-29 06:35] LABS: Glucose,Whole Blood 152 mg/dL (70-110)
[2023-06-29] MEDS: LEVOTHYROXINE 50 MCG TAB PO SCH (06:46)
[2023-06-29] MEDS: INSULIN ASPART (NovoLOG) 100 UNIT/ML VIAL SQ SCH ×4 (06:46→21:17)
[2023-06-29] MEDS: metFORMIN 500 MG TAB PO SCH (06:46)
[2023-06-29] MEDS: ENOXAPARIN 40 MG/0.4 ML SYRINGE SQ SCH (08:31)
[2023-06-29] MEDS: ZINC SULFATE 220 MG CAP PO SCH (08:31)
[2023-06-29] MEDS: CHOLECALCIFEROL 25 MCG (1000 IU) TABLET PO SCH (08:31)
[2023-06-29] MEDS: LACOSAMIDE 50 MG TABLET PO SCH ×2 (08:31→21:17)
[2023-06-29] MEDS: SODIUM CHLORIDE TAB 1 GM TAB PO SCH ×2 (08:31→21:17)
[2023-06-29] MEDS: amLODIPine 5 MG TAB PO SCH (08:31)
[2023-06-29 08:35] LABS: HCT 39.7 % (37.2-46.3); HGB 13.5 g/dL (12.0-15.0); MCH 32.9 pg (27.0-32.0); MCV 96.8 FL (80.0-97.0); Mean Platelet Volume 9.1 FL (9.5-12.2); NRBC Per 100 WBC 0 X 10*3/uL (0.00-0.01); Platelet Count 356 X 10*3/uL (140-440); RDW 13.1 % (11.5-14.5); WBC 7.69 X 10*3/uL (4.50-10.00)
[2023-06-29 08:36] LABS: Basophils # (A) 0.06 X 10*3/uL (0.00-0.10); Basophils % (A) 0.8 %; Eosinophils # (A) 0.15 X 10*3/uL (0.04-0.35); Lymphocytes # (A) 1.29 X 10*3/uL (0.90-5.00); Lymphocytes % (A) 16.8 %; Monocytes # (A) 0.83 X 10*3/uL (0.20-1.00); Monocytes % (A) 10.8 %; Neutrophils % (A) 68.8 %
[2023-06-29 09:22] LABS: Blood Urea Nitrogen 11.8 mg/dL (9.0-27.0); Calcium 9.2 mg/dL (8.7-10.3); Carbon Dioxide 24.1 mmol/L (21.6-31.8); Chloride 96 mmol/L (96-109); Glucose 155 mg/dL (70-110); Potassium 4.6 mmol/L (3.5-5.5); Sodium 131 mmol/L (135-145)
[2023-06-29 11:37] LABS: Glucose,Whole Blood 133 mg/dL (70-110)
[2023-06-29] MEDS ORDERED: QUEtiapine 25 MG TAB PO STA (16:09)
[2023-06-29 16:53] LABS: Glucose,Whole Blood 170 mg/dL (70-110)
[2023-06-29 20:14] LABS: Glucose,Whole Blood 163 mg/dL (70-110)
[2023-06-29] MEDS: ATORVASTATIN 10 MG TAB PO SCH (21:17)
[2023-06-29] MEDS: ASPIRIN 81 MG PO SCH (21:17)
[2023-06-29] MEDS: SODIUM CHLORIDE 0.9% 1,000 ML IV SCH (22:19)
--- NOTE | 2023-06-30 00:44 | P.PN ---
Subjective Progress Note Date: 06/27/23 patient 72-year-old lady with past medical significant for hypertension, diabetes mellitus, seizure presented to the ER because of reported seizure at home. Patient was admitted in April of this year with similar complaint at that time patient had detailed neurological workup was started on Vimpat for seizures. History was obtained from patient's , according to him patient was all right yesterday afternoon when patient has been came to check on her and asked her if she needed anything, patient was staring at him and was not able to supply, then she started shaking uncontrollably, patient became concerned and immediately called EMS. Patient did not notice any fecal or urinary incontinence. There was no tongue biting. EMS reached the spot and brought her to the ER. Patient was post ictal when she came to the ER. According to the EMR, had another seizure while in the ER, Initial lab work done in the ER showed WBC 9.2, hemoglobin 14.3, platelet count 309, sodium 124, potassium 4.3, BUN/creatinine 13, creatinine 0.42, glucose 173 AST 36, ALT 37, TSH 3.360, COVID-19 detected EKG done in the ER showed heart rate of 73 , no ST segment elevation or depression seen, no T-wave inversions seen. Patient admitted to internal medicine service 06/26. Patient seen and examined. Patient much more awake and alert this morning. at bedside. Sodium level this morning is 128. Neurology evaluated the patient, recommended increasing dose of Vimpat to 100 mg twice a day 06/27/2023 Patient is currently sitting in the bed. Awake alert but agitated. Patient st ates that she does not think she has COVID-19. Patient is also not vaccinated. Patient is currently on room air. No nausea or vomiting. Tolerating oral diet. Afebrile. Continued on ceftriaxone for urinary tract infection. Neurology is on board. Patient is being continued on Vimpat 100 mg twice daily dose increased. Laboratory data showed sodium 130 potassium 4.7 chloride 95 bicarb is 23.7 BUN 8.6 and creatinine 0.5 and blood sugar is 157. Repeat COVID-19 PCR detected. Current medications reviewed. REVIEW OF SYSTEMS: CONSTITUTIONAL: No fever, no malaise,. CARDIOVASCULAR: No chest pain, no palpitations, no syncope. PULMONARY: No shortness of breath, no cough, GASTROINTESTINAL: No diarrhea, no nausea, no vomiting, no abdominal pain. NEUROLOGICAL: No headaches, no weakness, PHYSICAL EXAMINATION: GENERAL: The patient is alert , not in any acute distress. Well developed, well nourished. HEENT: Pupils are round and equally reacting to light. EOMI. No scleral icterus. No conjunctival pallor. Normocephalic, atraumatic. No pharyngeal erythema. No thyromegaly. CARDIOVASCULAR: S1 and S2 present. No murmurs, rubs, or gallops. PULMONARY: Chest is clear to auscultation, no wheezing or crackles. ABDOMEN: Soft, nontender, nondistended, normoactive bowel sounds. No palpable or ganomegaly. MUSCULOSKELETAL: No joint swelling or deformity. EXTREMITIES: No cyanosis, clubbing, or pedal edema. NEUROLOGICAL: Gross neurological examination did not reveal any focal deficits. SKIN: No rashes. Assessment and plan Seizures Acute metabolic encephalopathy Covid 19 infection Hyponatremia mild transaminitis Diabetes mellitus Hypertension, uncontrolled on admission Hyperlipidemia Hypothyroidism Monitor vital signs Monitor CBC Monitor CMP Continue telemetry monitoring Continue with the neuro check Continue with IV fluids Continue Vimpat 100 mg twice a day per neurology Monitor blood sugar levels, continue sliding scale insulin Neurology following Objective - Vital Signs Vital signs: Vital Signs Temp 98.4 F 06/27/23 12:46 Pulse 79 06/27/23 12:46 Resp 18 06/27/23 12:46 BP 111/67 06/27/23 12:46 Pulse Ox 99 06/27/23 12:46 FiO2 Intake & Output 06/27/23 06/27/23 06/28/23 06:59 18:59 06:59 Other: # Voids 1 3 - Labs CBC & Chem 7: 06/29/23 03:56 06/29/23 03:56 Labs: Abnormal Lab Results - Last 24 Hours (Table) 06/27/23 06/27/23 06/27/23 Range/Units 05:50 07:14 12:11 Sodium 130 L (135-145) mmol/L Chloride 95 L (96-109) mmol/L BUN 8.6 L (9.0-27.0) mg/dL Creatinine 0.5 L (0.6-1.5) mg/dL Glucose 157 H (70-110) mg/dL POC Glucose (mg/dL) 154 H 154 H (70-110) mg/dL SARS-CoV-2 (PCR) (Not Detectd) 06/27/23 06/27/23 06/27/23 Range/Units 13:05 16:31 20:57 Sodium (135-145) mmol/L Chloride (96-109) mmol/L BUN (9.0-27.0) mg/dL Creatinine (0.6-1.5) mg/dL Glucose (70-110) mg/dL POC Glucose (mg/dL) 151 H 142 H (70-110) mg/dL SARS-CoV-2 (PCR) Detected A (Not Detectd)
--- NOTE | 2023-06-30 00:45 | P.PN ---
Subjective Progress Note Date: 06/28/23 patient 72-year-old lady with past medical significant for hypertension, diabetes mellitus, seizure presented to the ER because of reported seizure at home. Patient was admitted in April of this year with similar complaint at that time patient had detailed neurological workup was started on Vimpat for seizures. History was obtained from patient's , according to him patient was all right yesterday afternoon when patient has been came to check on her and asked her if she needed anything, patient was staring at him and was not able to supply, then she started shaking uncontrollably, patient became concerned and immediately called EMS. Patient did not notice any fecal or urinary incontinence. There was no tongue biting. EMS reached the spot and brought her to the ER. Patient was post ictal when she came to the ER. According to the EMR, had another seizure while in the ER, Initial lab work done in the ER showed WBC 9.2, hemoglobin 14.3, platelet count 309, sodium 124, potassium 4.3, BUN/creatinine 13, creatinine 0.42, glucose 173 AST 36, ALT 37, TSH 3.360, COVID-19 detected EKG done in the ER showed heart rate of 73 , no ST segment elevation or depression seen, no T-wave inversions seen. Patient admitted to internal medicine service 06/26. Patient seen and examined. Patient much more awake and alert this morning. at bedside. Sodium level this morning is 128. Neurology evaluated the patient, recommended increasing dose of Vimpat to 100 mg twice a day 06/27/2023 Patient is currently sitting in the bed. Awake alert but agitated. Patient st ates that she does not think she has COVID-19. Patient is also not vaccinated. Patient is currently on room air. No nausea or vomiting. Tolerating oral diet. Afebrile. Continued on ceftriaxone for urinary tract infection. Neurology is on board. Patient is being continued on Vimpat 100 mg twice daily dose increased. Laboratory data showed sodium 130 potassium 4.7 chloride 95 bicarb is 23.7 BUN 8.6 and creatinine 0.5 and blood sugar is 157. Repeat COVID-19 PCR detected. 06/28/2023 Patient is lying in the bed. Awake alert and oriented x 3. Seems to be more awake and oriented today. Repeat COVID-19 PCR still positive. Patient has been afebrile. No nausea vomiting or abdominal pain or diarrhea. Urine culture is growing gram-negative bacilli. Continued on ceftriaxone and follow-up final culture report. Patient has been afebrile. No headache or dizziness or lightheadedness. Patient is agitated at times and was given Ativan as needed for agitation. Current medications reviewed. REVIEW OF SYSTEMS: CONSTITUTIONAL: No fever, no malaise,. CARDIOVASCULAR: No chest pain, no palpitations, no syncope. PULMONARY: No shortness of breath, no cough, GASTROINTESTINAL: No diarrhea, no nausea, no vomiting, no abdominal pain. NEUROLOGICAL: No headaches, no weakness, PHYSICAL EXAMINATION: GENERAL: The patient is alert , not in any acute distress. Well developed, well nourished. HEENT: Pupils are round and equally reacting to light. EOMI. No scleral icterus. No conjunctival pallor. Normocephalic, atraumatic. No pharyngeal erythema. No thyromegaly. CARDIOVASCULAR: S1 and S2 present. No murmurs, rubs, or gallops. PULMONARY: Chest is clear to auscultation, no wheezing or crackles. ABDOMEN: Soft, nontender, nondistended, normoactive bowel sounds. No palpable organomegaly. MUSCULOSKELETAL: No joint swelling or deformity. EXTREMITIES: No cyanosis, clubbing, or pedal edema. NEUROLOGICAL: Gross neurological examination did not reveal any focal deficits. SKIN: No rashes. Assessment and plan Acute breakthrough seizures. Acute metabolic encephalopathy Acute Covid 19 infection Acute urinary tract infection Hyponatremia mild transaminitis Diabetes mellitus Hypertension, uncontrolled on admission Hyperlipidemia Hypothyroidism Monitor vital signs Monitor CBC Monitor CMP Continue telemetry monitoring Continue with the neuro check Continue with IV fluids Continue Vimpat 100 mg twice a day per neurology Monitor blood sugar levels, continue sliding scale insulin Patient was started on ceftriaxone and follow-up urine culture report. Objective - Vital Signs Vital signs: Vital Signs Temp 98.2 F 06/28/23 14:00 Pulse 66 06/28/23 14:00 Resp 17 06/28/23 14:00 BP 150/74 06/28/23 14:00 Pulse Ox 97 06/28/23 14:00 FiO2 Intake & Output 06/28/23 06/28/23 06/29/23 06:59 18:59 06:59 Other: # Voids 2 4 - Labs CBC & Chem 7: 06/29/23 03:56 06/29/23 03:56 Labs: Abnormal Lab Results - Last 24 Hours (Table) 06/28/23 06/28/23 06/28/23 Range/Units 03:44 03:44 06:38 RBC 4.03 L (4.10-5.20) X 10*6/uL MCV 98.3 H (80.0-97.0) FL MCH 33.0 H (27.0-32.0) pg MPV 9.3 L (9.5-12.2) FL Immature Gran # 0.05 H (0.00-0.04) X 10*3/uL Sodium 133 L (135-145) mmol/L Potassium 5.6 H (3.5-5.5) mmol/L BUN/Creatinine Ratio 20.33 H (12.00-20.00) Ratio Glucose 132 H (70-110) mg/dL POC Glucose (mg/dL) 143 H (70-110) mg/dL 06/28/23 06/28/23 06/28/23 Range/Units 10:53 16:23 20:08 RBC (4.10-5.20) X 10*6/uL MCV (80.0-97.0) FL MCH (27.0-32.0) pg MPV (9.5-12.2) FL Immature Gran # (0.00-0.04) X 10*3/uL Sodium (135-145) mmol/L Potassium (3.5-5.5) mmol/L BUN/Creatinine Ratio (12.00-20.00) Ratio Glucose (70-110) mg/dL POC Glucose (mg/dL) 163 H 236 H 166 H (70-110) mg/dL Microbiology - Last 24 Hours (Table) 06/26/23 21:30 Urine Culture - Preliminary Urine,Voided Gram Neg Bacilli
--- NOTE | 2023-06-30 00:47 | P.PN ---
Subjective Progress Note Date: 06/29/23 patient 72-year-old lady with past medical significant for hypertension, diabetes mellitus, seizure presented to the ER because of reported seizure at home. Patient was admitted in April of this year with similar complaint at that time patient had detailed neurological workup was started on Vimpat for seizures. History was obtained from patient's , according to him patient was all right yesterday afternoon when patient has been came to check on her and asked her if she needed anything, patient was staring at him and was not able to supply, then she started shaking uncontrollably, patient became concerned and immediately called EMS. Patient did not notice any fecal or urinary incontinence. There was no tongue biting. EMS reached the spot and brought her to the ER. Patient was post ictal when she came to the ER. According to the EMR, had another seizure while in the ER, Initial lab work done in the ER showed WBC 9.2, hemoglobin 14.3, platelet count 309, sodium 124, potassium 4.3, BUN/creatinine 13, creatinine 0.42, glucose 173 AST 36, ALT 37, TSH 3.360, COVID-19 detected EKG done in the ER showed heart rate of 73 , no ST segment elevation or depression seen, no T-wave inversions seen. Patient admitted to internal medicine service 06/26. Patient seen and examined. Patient much more awake and alert this morning. at bedside. Sodium level this morning is 128. Neurology evaluated the patient, recommended increasing dose of Vimpat to 100 mg twice a day 06/27/2023 Patient is currently sitting in the bed. Awake alert but agitated. Patient st ates that she does not think she has COVID-19. Patient is also not vaccinated. Patient is currently on room air. No nausea or vomiting. Tolerating oral diet. Afebrile. Continued on ceftriaxone for urinary tract infection. Neurology is on board. Patient is being continued on Vimpat 100 mg twice daily dose increased. Laboratory data showed sodium 130 potassium 4.7 chloride 95 bicarb is 23.7 BUN 8.6 and creatinine 0.5 and blood sugar is 157. Repeat COVID-19 PCR detected. 06/28/2023 Patient is lying in the bed. Awake alert and oriented x 3. Seems to be more awake and oriented today. Repeat COVID-19 PCR still positive. Patient has been afebrile. No nausea vomiting or abdominal pain or diarrhea. Urine culture is growing gram-negative bacilli. Continued on ceftriaxone and follow-up final culture report. Patient has been afebrile. No headache or dizziness or lightheadedness. Patient is agitated at times and was given Ativan as needed for agitation. 06/29/2023 Patient is lying in the bed. Awake alert and oriented. Sometimes agitated and confused. Patient was also pulling tubes. Was given a dose of Seroquel today afternoon. Otherwise patient denies any headache or dizziness or lightheadedness. No cough or sputum production. Patient is maintained on ceftriaxone and awaiting final culture report. Hospital discharge in the next 24 to 48 hours. Laboratory data showed sodium 131 potassium 4.6 chloride 96 bicarb is 24.1 BUN 11.8 and creatinine 0.5 and blood sugar is 155. Current medications reviewed. REVIEW OF SYSTEMS: CONSTITUTIONAL: No fever, no malaise,. CARDIOVASCULAR: No chest pain, no palpitations, no syncope. PULMONARY: No shortness of breath, no cough, GASTROINTESTINAL: No diarrhea, no nausea, no vomiting, no abdominal pain. NEUROLOGICAL: No headaches, no weakness, PHYSICAL EXAMINATION: GENERAL: The patient is alert , not in any acute distress. Well developed, well nourished. HEENT: Pupils are round and equally reacting to light. EOMI. No scleral icterus. No conjunctival pallor. Normocephalic, atraumatic. No pharyngeal erythema. No thyromegaly. CARDIOVASCULAR: S1 and S2 present. No murmurs, rubs, or gallops. PULMONARY: Chest is clear to auscultation, no wheezing or crackles. ABDOMEN: Soft, nontender, nondistended, normoactive bowel sounds. No palpable organomegaly. MUSCULOSKELETAL: No joint swelling or deformity. EXTREMITIES: No cyanosis, clubbing, or pedal edema. NEUROLOGICAL: Gross neurological examination did not reveal any focal deficits. SKIN: No rashes. Assessment and plan Acute breakthrough seizures. Acute metabolic encephalopathy Acute Covid 19 infection Acute urinary tract infection Hyponatremia mild transaminitis Diabetes mellitus Hypertension, uncontrolled on admission Hyperlipidemia Hypothyroidism Monitor vital signs Monitor CBC Monitor CMP Continue telemetry monitoring Continue with the neuro check Continue with IV fluids Continue Vimpat 100 mg twice a day per neurology Monitor blood sugar levels, continue sliding scale insulin Patient was started on ceftriaxone and follow-up urine culture report. Objective - Vital Signs Vital signs: Vital Signs Temp 97.8 F 06/29/23 19:54 Pulse 63 06/29/23 19:54 Resp 19 06/29/23 12:50 BP 148/76 06/29/23 19:54 Pulse Ox 97 06/29/23 19:54 FiO2 Intake & Output 06/29/23 06/29/23 06/30/23 06:59 18:59 06:59 Intake Total 500 Balance 500 Intake: Oral 500 Other: Voiding Method External Catheter # Voids 3 2 1 - Labs CBC & Chem 7: 06/29/23 03:56 06/29/23 03:56 Labs: Abnormal Lab Results - Last 24 Hours (Table) 06/29/23 06/29/23 06/29/23 Range/Units 03:56 03:56 06:34 MCH 32.9 H (27.0-32.0) pg MPV 9.1 L (9.5-12.2) FL Immature Gran # 0.06 H (0.00-0.04) X 10*3/uL Sodium 131 L (135-145) mmol/L Creatinine 0.5 L (0.6-1.5) mg/dL BUN/Creatinine Ratio 23.60 H (12.00-20.00) Ratio Glucose 155 H (70-110) mg/dL POC Glucose (mg/dL) 152 H (70-110) mg/dL 06/29/23 06/29/23 06/29/23 Range/Units 11:35 16:52 20:12 MCH (27.0-32.0) pg MPV (9.5-12.2) FL Immature Gran # (0.00-0.04) X 10*3/uL Sodium (135-145) mmol/L Creatinine (0.6-1.5) mg/dL BUN/Creatinine Ratio (12.00-20.00) Ratio Glucose (70-110) mg/dL POC Glucose (mg/dL) 133 H 170 H 163 H (70-110) mg/dL Microbiology - Last 24 Hours (Table) 06/26/23 21:30 Urine Culture - Final Urine,Voided Escherichia coli
[2023-06-30 05:44] LABS: Glucose,Whole Blood 143 mg/dL (70-110)
[2023-06-30] MEDS: INSULIN ASPART (NovoLOG) 100 UNIT/ML VIAL SQ SCH ×2 (05:45→11:19)
[2023-06-30] MEDS: LEVOTHYROXINE 50 MCG TAB PO SCH (06:30)
[2023-06-30] MEDS: metFORMIN 500 MG TAB PO SCH (06:30)
[2023-06-30] MEDS: LACOSAMIDE 50 MG TABLET PO SCH (08:27)
[2023-06-30] MEDS: CHOLECALCIFEROL 25 MCG (1000 IU) TABLET PO SCH (08:27)
[2023-06-30] MEDS: SODIUM CHLORIDE TAB 1 GM TAB PO SCH (08:27)
[2023-06-30] MEDS: amLODIPine 5 MG TAB PO SCH (08:27)
[2023-06-30] MEDS: ZINC SULFATE 220 MG CAP PO SCH (08:27)
[2023-06-30] MEDS: ENOXAPARIN 40 MG/0.4 ML SYRINGE SQ SCH (08:28)
[2023-06-30 11:11] LABS: Glucose,Whole Blood 147 mg/dL (70-110)
[2023-06-30 11:16] LABS: Blood Urea Nitrogen 12.6 mg/dL (9.0-27.0); Calcium 9.4 mg/dL (8.7-10.3); Carbon Dioxide 26.3 mmol/L (21.6-31.8); Chloride 97 mmol/L (96-109); Glucose 141 mg/dL (70-110); Potassium 4.5 mmol/L (3.5-5.5); Sodium 133 mmol/L (135-145)
[2023-06-30 12:37] VITALS: BMI 24.9
[2023-06-30 14:18] VITALS: BP 134/72; PULSE 76; RESP 17; TEMP 98
--- NOTE | 2023-07-02 06:34 | P.DS ---
Providers Date of admission: 06/25/23 00:23 Expected date of discharge: 06/30/23 Attending physician: Corey Ndiaye Consults: 06/25/23 00:22 Consult Physician Routine Consulting Provider: Shannon Leigh Consult Reason/Comments: recurrent seizures Do you want consulting provider notified?: Yes, Notify in am Primary care physician: Michael Adler [facility] Course: Final diagnosis Acute breakthrough seizures. Acute metabolic encephalopathy Acute Covid 19 infection Acute urinary tract infection, present on admission secondary to E. coli Hyponatremia, improved mild transaminitis Diabetes mellitus Hypertension, uncontrolled on admission Hyperlipidemia Hypothyroidism Discharge disposition Patient is being discharged in a stable condition with guarded prognosis to home. Patient will follow-up with Dr. Adler in the outpatient setting upon discharge. Patient is to continue with oral Ceftin twice daily for the next few days to complete the course. Patient to follow-up with neurology outpatient as scheduled. Total time taken is greater than 35 minutes. Hospital course This is a 72-year-old female who was recently admitted with increased seizures acute metabolic encephalopathy. Patient with history of seizures maintained on Vimpat was seen and evaluated by neurology with adjustments to medications made recommending outpatient follow-up with her neurologist. Patient also with acute COVID-19 infection with concerns of urinary tract infection on admission. Patient not requiring any oxygen and has no symptomology of closely. Patient's urine cultures finalized showing E. coli and will continue on Ceftin to complete course. Patient sodium was low and at bedside reports this has been ongoing for quite some time improved and is 133 today. Recommend follow-up labs and follow-up evaluation with primary care provider. Patient has been cleared by consultation. Please refer to their consultation notes for further HPI. Currently no reports of chest pain, shortness of breath, or palpitations. Patient is afebrile. No reports of nausea or vomiting and patient is tolerating diet. Patient will be discharged home today. Guarded prognosis. Physical exam: Gen: This is a 72-year-old female who is awake, alert and oriented 2-3, forgetful, well-developed, well-nourished HEENT: Head is atraumatic, normocephalic. Pupils equal, round. Sclerae is a nicteric. NECK: Supple. No JVD. No lymphadenopathy. No thyromegaly. LUNGS: Clear to auscultation. No wheezes or rhonchi. No intercostal retractions. HEART: Regular rate and rhythm. No murmur. ABDOMEN: Soft. Bowel sounds are present. No masses. No tenderness. EXTREMITIES: No pedal edema. No calf tenderness. NEUROLOGICAL: Patient is awake, alert and oriented x3. Cranial nerves 2 through 12 are grossly intact. Please refer to medication reconciliation sheet for a list of medications. The impression and plan of care has been dictated by Kyung Gil, Nurse Practitioner as directed. Dr. Jesus Alberto MD I have performed a history and examination and MDM of this patient, discussed the same with the dictator, and agree with the dictator's assessment and plan as written ,documented as a scribe. Based on total visit time, I have performed more than 50% of the visit. Patient Condition at Discharge: Fair Plan - Discharge Summary Discharge Rx Participant: No New Discharge Prescriptions: New cefUROXime axetiL [Ceftin] 500 mg PO BID 5 Days #10 tab Zinc Sulfate [Orazinc] 220 mg PO DAILY 15 Days #15 cap Sodium Chloride Tab 1 gm PO BID #60 tab Lacosamide [Vimpat] 100 mg PO BID #60 tab Continue Aspirin [Adult Low Dose Aspirin EC] 81 mg PO HS Atorvastatin [Lipitor] 10 mg PO HS amLODIPine [Norvasc] 5 mg PO DAILY #30 tab metFORMIN HCL [Glucophage] 500 mg PO DAILY #30 tablet Cholecalciferol [Vitamin D3 (25 Mcg = 1000 Iu)] 25 mcg PO HS Levothyroxine Sodium [Synthroid] 50 mcg PO DAILY Multivit-Min/FA/Lycopen/Lutein [Centrum Silver Tablet] 1 tab PO HS Vit C/E/Zn/Coppr/Lutein/Zeaxan [Preservision Areds 2 Softgel] 1 cap PO HS Discontinued Lacosamide [Vimpat] 50 mg PO BID #60 tab Discharge Medication List Aspirin [Adult Low Dose Aspirin EC] 81 mg PO HS 09/11/15 [History] Atorvastatin [Lipitor] 10 mg PO HS 08/09/17 [History] Cholecalciferol [Vitamin D3 (25 Mcg = 1000 Iu)] 25 mcg PO HS 05/05/23 [History] Levothyroxine Sodium [Synthroid] 50 mcg PO DAILY 05/05/23 [History] Multivit-Min/FA/Lycopen/Lutein [Centrum Silver Tablet] 1 tab PO HS 05/05/23 [History] Vit C/E/Zn/Coppr/Lutein/Zeaxan [Preservision Areds 2 Softgel] 1 cap PO HS 05/05/23 [History] amLODIPine [Norvasc] 5 mg PO DAILY #30 tab 05/09/23 [Rx] metFORMIN HCL [Glucophage] 500 mg PO DAILY #30 tablet 05/09/23 [Rx] Lacosamide [Vimpat] 100 mg PO BID #60 tab 06/30/23 [Rx] Sodium Chloride Tab 1 gm PO BID #60 tab 06/30/23 [Rx] Zinc Sulfate [Orazinc] 220 mg PO DAILY 15 Days #15 cap 06/30/23 [Rx] cefUROXime axetiL [Ceftin] 500 mg PO BID 5 Days #10 tab 06/30/23 [Rx] Follow up Appointment(s)/Referral(s): Michael Adler MD [Primary Care Provider] - 1-2 days (Office will be calling your to schedule appointment.) Adal Garcia MD [Medical Doctor] - 1 Week Tyler Crow MD [STAFF PHYSICIAN] - 1 Week David Villegas DO [STAFF PHYSICIAN] - 1 Week Ambulatory/Diagnostic Orders: Basic Metabolic Panel [LAB.AMB] Time Frame: 1 Week, Location: None Selected Patient Instructions/Handouts: Seizure/Epilepsy Discharge Instructions & Follow-Up Activity/Diet/Wound Care/Special Instructions: Activity Limited until follow-up Follow-up with primary care provider this week Continue taking medications as prescribed Follow-up with neurology as medications have been adjusted Continue diabetic diet Follow-up with repeat BMP to monitor sodium levels in one week Continue sodium tabs Continue antibiotics for the next 5 days to complete the course Discharge Disposition: HOME SELF-CARE
== END 2023-06-30 14:29 | disposition home or self-care (01) | DRG 100 ==
LOC: EC 18:08 → 6NMEDSUR 06-25 00:22 → OBSVTOIN 06-25 00:23 → 5NMEDONC 06-25 01:12 → 4SSUR 06-25 02:24
PROVIDERS: ADMIT Hospitalist; ATTEND Hospitalist
PROC: 4A10X4Z Monitoring of Central Nervous Electrical Activity, External Approach (ICD-10-PCS; principal; 2023-06-27)
DX: G40.909 Epilepsy, unspecified, not intractable, without status epilepticus (principal); G93.41 Metabolic encephalopathy; U07.1 COVID-19; E87.1 Hypo-osmolality and hyponatremia; K90.41 Non-celiac gluten sensitivity; N39.0 Urinary tract infection, site not specified; R74.01 Elevation of levels of liver transaminase levels; Z20.822 Contact with and (suspected) exposure to COVID-19; I10 Essential (primary) hypertension; E78.5 Hyperlipidemia, unspecified; E03.9 Hypothyroidism, unspecified; Z79.890 Hormone replacement therapy; H53.9 Unspecified visual disturbance
CPT/HCPCS: 36415; 70450; 80048; 80053; 80306; 81001; 82306; 83036; 83735; 84443; 85025; 87077; 87086; 87186; 87635; 93005; 94760; 95816; 96361; 96372; 96374; 96375; 96376; 99285

== ENCOUNTER → 2024-03-30 | Outpatient (CLI) | payer MEDICARE ==
[~2024-03-30] MED LIST: IODINE/POTASSIUM IODIDE 14 ML BOTTLE ONE
--- NOTE | 2024-04-02 23:19 | NM ---
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 After the administration of 4.95 mCi I-123 Ioflupane DaTscan. Images obtained 3 hours p ost injection. SPECT images of the brain were acquired with axial and coronal reconstructions. FINDINGS: The DaTSCAN demonstrates normal uptake of tracer throughout the striata. Consequently there is no evidence of loss of the pre-synaptic dopaminergic terminals on this investigation IMPRESSION: Normal study. [facility], , 04/02/2024 11:17 PM
== END | disposition home or self-care (01) ==
LOC: RADNMMAIN 07:41
PROVIDERS: ATTEND Psychiatry & Neurology Neurology
DX: Z86.69 Personal history of other diseases of the nervous system and sense organs (principal)
CPT/HCPCS: 78803

== ENCOUNTER 2024-06-20 09:59 | Emergency (ER) | payer MEDICARE ==
--- NOTE | 2024-06-20 11:06 | ED ---
General Adult HPI - General Source: patient, family, RN notes reviewed, old records reviewed Mode of arrival: ambulatory Limitations: altered mental status <Timmy Marin - Last Filed: 06/20/24 14:41> <Ariel David - Last Filed: 06/20/24 21:21> - General Chief complaint: Altered Mental Status Stated complaint: AMS/mental health Time Seen by Provider: 06/20/24 10:31 - History of Present Illness Initial comments: 73-year-old female with steady decline over the past 2 months, diagnosis of dementia is pending. Patient has had increased outburst and is made continuous suicidal statements and has at times been biting herself and scratching herself. History is obtained from the patient and her who is at bedside. Requesting mental health evaluation for suicidal thoughts and depression. (Timmy Marin) - Related Data Home Medications Medication Instructions Recorded Confirmed Atorvastatin [Lipitor] 10 mg PO HS 08/09/17 06/20/24 Lacosamide [Vimpat] 100 mg PO BID 06/20/24 06/20/24 Levothyroxine Sodium [Synthroid] 88 mcg PO DAILY 06/20/24 06/20/24 metFORMIN HCL [Glucophage] 500 mg PO BID 06/20/24 06/20/24 Previous Rx's Medication Instructions Recorded amLODIPine [Norvasc] 5 mg PO DAILY #30 tab 05/09/23 Allergies Allergy/AdvReac Type Severity Reaction Status Date / Time lactose AdvReac Diarrhea Verified 06/20/24 13:03 Review of Systems ROS Other: All systems not noted in ROS Statement are negative. <Timmy Marin - Last Filed: 06/20/24 14:41> ROS Other: All systems not noted in ROS Statement are negative. <Ariel David - Last Filed: 06/20/24 21:21> ROS Statement: Those systems with pertinent positive or pertinent negative responses have been documented in the HPI. Past Medical History Past Medical History: Diabetes Mellitus, Hyperlipidemia, Hypertension, Seizure Disorder, Thyroid Disorder Additional Past Medical History / Comment(s): hypothyroid, seizures History of Any Multi-Drug Resistant Organisms: None Reported Past Surgical History: Section Additional Past Surgical History / Comment(s): 1982 Past Anesthesia/Blood Transfusion Reactions: No Reported Reaction Past Psychological History: No Psychological Hx Reported Smoking Status: Never smoker Past Alcohol Use History: None Reported Past Drug Use History: None Reported - Past Family History Father Additional Family Medical History / Comment(s): Father at the age of 62 yrs from "natural causes." Mother Additional Family Medical History / Comment(s): Mother is due to house fire. <DejuanroblesTimmy Gregorio - Last Filed: 06/20/24 14:41> General Exam Limitations: altered mental status General appearance: alert, in no apparent distress Head exam: Present: atraumatic, normocephalic Eye exam: Present: normal appearance, PERRL ENT exam: Present: normal exam Respiratory exam: Present: normal lung sounds bilaterally. Absent: respiratory distress, wheezes Cardiovascular Exam: Present: regular rate, normal rhythm GI/Abdominal exam: Present: soft. Absent: distended, tenderness Neurological exam: Present: alert. Absent: motor sensory deficit Psychiatric exam: Present: depressed, suicidal ideation Skin exam: Present: warm, dry, intact <Timmy aMrin - Last Filed: 06/20/24 14:41> Course Vital Signs 06/20/24 06/20/24 10:05 17:03 Temperature 97.6 F 97.9 F Pulse Rate 75 68 Respiratory 20 16 Rate Blood Pressure 165/86 137/79 O2 Sat by Pulse 99 100 Oximetry Medical Decision Making - Lab Data Result diagrams: 06/20/24 11:20 06/20/24 12:35 <Timmy Marin - Last Filed: 06/20/24 14:41> - Lab Data Result diagrams: 06/20/24 11:20 06/20/24 12:35 <Ariel David - Last Filed: 06/20/24 21:21> - Medical Decision Making Was pt. sent in by a medical professional or institution (, PA, SKILLS INSTRUCTOR, urgent care, hospital, or jail...) When possible be specific @ -No Did you speak to anyone other than the patient for history (EMS, parent, family, police, friend...)? What history was obtained from this source @ -No Did you review nursing and triage notes (agree or disagree)? Why? @ -I reviewed and agree with nursing and triage notes Were old charts reviewed (outside hosp., previous admission, EMS record, old EKG, old radiological studies, urgent care reports/EKG's, jail records)? Report findings @ -No old charts were reviewed Differential Mental Health Depression, anxiety, bipolar, psychosis, schizophrenia, borderline personality, situational depression, adjustment disorder, behavioral disorder, brain tumor, malingering, substance abuse, encephalopathy, medication reaction, dementia, hypothyroidism, degenerative neurologic disorder, lupus.... This is not meant to be all-inclusive list EKG interpreted by me (3pts min.). @ -Sinus rhythm rate of 72, DC interval 154, QRS duration 86, QTc [address] segment elevation. X-rays interpreted by me (1pt min.). @ -None done CT interpreted by me (1pt min.). @ -None done U/S interpreted by me (1pt. min.). @ -None done What testing was considered but not performed or refused? (CT, X-rays, U/S, labs)? Why? @ -None What meds were considered but not given or refused? Why? @ -None Did you discuss the management of the patient with other professionals (professionals i.e. , PA, SKILLS INSTRUCTOR, lab, RT, psych nurse, manager social, coo & co founder, teacher, community development officer, spring encaser)? Give summary @ -No Was smoking cessation discussed for >3mins.? @ -No Was critical care preformed (if so, how long)? @ -No Were there social determinants of health that impacted care today? How? (Homelessness, low income, unemployed, alcoholism, drug addiction, transportation, low edu. Level, literacy, decrease access to med. care, usp, rehab)? @ -No Was there de-escalation of care discussed even if they declined (Discuss DNR or withdrawal of care, Hospice)? DNR status @ -No What co-morbidities impacted this encounter? (DM, HTN, Smoking, COPD, CAD, Cancer, CVA, ARF, Chemo, Hep., AIDS, mental health diagnosis, sleep apnea, morbid obesity)? @ -None Was patient admitted / discharged? Hospital course, mention meds given and route, prescriptions, significant lab abnormalities, going to OR and other pertinent info. @ -Patient cleared for EPS evaluation for depression and suicidal ideation. Signed out to Dr. David at shift change awaiting EPS evaluation. (Timmy Marin) To me pending evaluation by EPS. Medically cleared by previous provider. EPS bolus evaluate the patient to determine that patient is cleared for discharge home at this time. Patient discharged home with safety plan. Diagnosis/symptom? @ -Encounter for psychiatric evaluation Acute, or Chronic, or Acute on Chronic? @ -Acute Uncomplicated (without systemic symptoms) or Complicated (systemic symptoms)? @ -Uncomplicated Side effects of treatment? @ -None Exacerbation, Progression, or Severe Exacerbation] @ -No Poses a threat to life or bodily function? @ -Unlikely (Ariel David) - Lab Data Lab Results 06/20/24 06/20/24 06/20/24 Range/Units 11:20 11:20 11:20 WBC 8.8 (3.8-10.6) k/uL RBC 4.45 (3.80-5.40) m/uL Hgb 14.8 (11.4-16.0) gm/dL Hct 45.4 (34.0-46.0) % MCV 101.9 H (80.0-100.0) fL MCH 33.2 (25.0-35.0) pg MCHC 32.6 (31.0-37.0) g/dL RDW 13.4 (11.5-15.5) % Plt Count 331 (150-450) k/uL MPV 7.4 Neutrophils % 77 % Lymphocytes % 15 % Monocytes % 5 % Eosinophils % 1 % Basophils % 1 % Neutrophils # 6.7 (1.3-7.7) k/uL Lymphocytes # 1.3 (1.0-4.8) k/uL Monocytes # 0.5 (0-1.0) k/uL Eosinophils # 0.1 (0-0.7) k/uL Basophils # 0.0 (0-0.2) k/uL Macrocytosis Slight PT 10.3 (10.0-12.5) sec INR 0.9 (<1.2) APTT 19.3 L (22.0-30.0) sec Sodium (137-145) mmol/L Potassium (3.5-5.1) mmol/L Chloride (98-107) mmol/L Carbon Dioxide (22-30) mmol/L Anion Gap mmol/L BUN (7-17) mg/dL Creatinine (0.52-1.04) mg/dL Est GFR (CKD-EPI)AfAm (>60 ml/min/1.73 sqM) Est GFR (CKD-EPI)NonAf (>60 ml/min/1.73 sqM) Glucose (74-99) mg/dL POC Glucose (mg/dL) (70-110) mg/dL POC Glu Alliance Director ID Calcium (8.4-10.2) mg/dL Total Bilirubin (0.2-1.3) mg/dL AST (14-36) U/L ALT (4-34) U/L Alkaline Phosphatase (38-126) U/L Ammonia (<30) umol/L Total Protein (6.3-8.2) g/dL Albumin (3.5-5.0) g/dL Urine Color Colorless Urine Appearance Cloudy H (Clear) Urine pH 6.0 (5.0-8.0) Ur Specific Alpine 1.013 (1.001-1.035) Urine Protein Negative (Negative) Urine Glucose (UA) Negative (Negative) Urine Ketones Negative (Negative) Urine Blood Negative (Negative) Urine Nitrite Positive H (Negative) Urine Bilirubin Negative (Negative) Urine Urobilinogen <2.0 (<2.0) mg/dL Ur Leukocyte Esterase Moderate H (Negative) Urine RBC 1 (0-5) /hpf Urine WBC 3 (0-5) /hpf Ur Squamous Epith Cells <1 (0-4) /hpf Urine Bacteria Occasional H (None) /hpf Urine Mucus Rare H (None) /hpf 06/20/24 06/20/24 06/20/24 Range/Units 11:20 11:57 12:35 WBC (3.8-10.6) k/uL RBC (3.80-5.40) m/uL Hgb (11.4-16.0) gm/dL Hct (34.0-46.0) % MCV (80.0-100.0) fL MCH (25.0-35.0) pg MCHC (31.0-37.0) g/dL RDW (11.5-15.5) % Plt Count (150-450) k/uL MPV Neutrophils % % Lymphocytes % % Monocytes % % Eosinophils % % Basophils % % Neutrophils # (1.3-7.7) k/uL Lymphocytes # (1.0-4.8) k/uL Monocytes # (0-1.0) k/uL Eosinophils # (0-0.7) k/uL Basophils # (0-0.2) k/uL Macrocytosis PT (10.0-12.5) sec INR (<1.2) APTT (22.0-30.0) sec Sodium 133 L (137-145) mmol/L Potassium 4.4 (3.5-5.1) mmol/L Chloride 98 (98-107) mmol/L Carbon Dioxide 28 (22-30) mmol/L Anion Gap 7 mmol/L BUN 17 (7-17) mg/dL Creatinine 0.50 L (0.52-1.04) mg/dL Est GFR (CKD-EPI)AfAm >90 (>60 ml/min/1.73 sqM) Est GFR (CKD-EPI)NonAf >90 (>60 ml/min/1.73 sqM) Glucose 129 H (74-99) mg/dL POC Glucose (mg/dL) 115 H (70-110) mg/dL POC Glu Alliance Director ID Fetterly Molly Calcium 9.6 (8.4-10.2) mg/dL Total Bilirubin 0.4 (0.2-1.3) mg/dL AST 30 (14-36) U/L ALT 33 (4-34) U/L Alkaline Phosphatase 231 H (38-126) U/L Ammonia <9 (<30) umol/L Total Protein 7.3 (6.3-8.2) g/dL Albumin 4.7 (3.5-5.0) g/dL Urine Color Urine Appearance (Clear) Urine pH (5.0-8.0) Ur Specific Alpine (1.001-1.035) Urine Protein (Negative) Urine Glucose (UA) (Negative) Urine Ketones (Negative) Urine Blood (Negative) Urine Nitrite (Negative) Urine Bilirubin (Negative) Urine Urobilinogen (<2.0) mg/dL Ur Leukocyte Esterase (Negative) Urine RBC (0-5) /hpf Urine WBC (0-5) /hpf Ur Squamous Epith Cells (0-4) /hpf Urine Bacteria (None) /hpf Urine Mucus (None) /hpf Disposition <Timmy Marin - Last Filed: 06/20/24 14:41> Is patient prescribed a controlled substance at d/c from ED?: No Time of Disposition: 17:00 <Ariel David - Last Filed: 06/20/24 21:21> Clinical Impression: Encounter for psychological evaluation Disposition: HOME SELF-CARE Condition: Good Additional Instructions: follow safety plan Referrals: Michael Adler MD [Primary Care Provider] - 1-2 days
[2024-06-20 11:37] LABS: Basophils % (A) 1 %; Eosinophils # (A) 0.1 k/uL (0-0.7); Eosinophils % (A) 1 %; HCT 45.4 % (34.0-46.0); HGB 14.8 gm/dL (11.4-16.0); Lymphocytes # (A) 1.3 k/uL (1.0-4.8); Lymphocytes % (A) 15 %; MCH 33.2 pg (25.0-35.0); MCHC 32.6 g/dL (31.0-37.0); MCV 101.9 fL (80.0-100.0); Macrocytosis Slight; Mean Platelet Volume 7.4; Monocytes # (A) 0.5 k/uL (0-1.0); Monocytes % (A) 5 %; Neutrophils # (A) 6.7 k/uL (1.3-7.7); Neutrophils % (A) 77 %; Platelet Count 331 k/uL (150-450); RBC 4.45 m/uL (3.80-5.40); RDW 13.4 % (11.5-15.5); WBC 8.8 k/uL (3.8-10.6)
[2024-06-20 11:57] LABS: INR 0.9 (<1.2); Prothrombin Time 10.3 sec (10.0-12.5)
[2024-06-20 12:00] LABS: Glucose,Whole Blood 115 mg/dL (70-110)
[2024-06-20 12:06] LABS: Partial Thromboplastin Time 19.3 sec (22.0-30.0)
[2024-06-20 12:09] LABS: Appearance,Urine Cloudy (Clear); Bacteria,Urine Occasional /hpf; Bilirubin,Urine Negative (Negative); Blood,Urine Negative (Negative); Color,Urine Colorless; Glucose,Urine (UA) Negative (Negative); Ketones,Urine Negative (Negative); Leukocyte Esterase,Urine Moderate (Negative); Mucus,Urine Rare /hpf; Nitrite,Urine Positive (Negative); Protein,Urine Negative (Negative); RBC,Urine 1 /hpf (0-5); Specific Gravity,Urine 1.013 (1.001-1.035); Squamous Epithelial Cell,Urine <1 /hpf (0-4); Urobilinogen,Urine <2.0 mg/dL (<2.0); WBC,Urine 3 /hpf (0-5)
[2024-06-20 13:00] LABS: ALT 33 U/L (4-34); AST 30 U/L (14-36); African American GFR (CKD) >90 (>60 ml/min/1.73 sqM); Albumin 4.7 g/dL (3.5-5.0); Alkaline Phosphatase 231 U/L (38-126); Anion Gap 7 mmol/L; Blood Urea Nitrogen 17 mg/dL (7-17); Calcium 9.6 mg/dL (8.4-10.2); Carbon Dioxide 28 mmol/L (22-30); Chloride 98 mmol/L (98-107); Glucose 129 mg/dL (74-99); Non-African American GFR(CKD) >90 (>60 ml/min/1.73 sqM); Potassium 4.4 mmol/L (3.5-5.1); Sodium 133 mmol/L (137-145); Total Bilirubin 0.4 mg/dL (0.2-1.3); Total Protein 7.3 g/dL (6.3-8.2)
[2024-06-20] MEDS: CEPHALEXIN 500 MG CAP PO SCH (15:04)
[2024-06-20 17:03] VITALS: BP 137/79; PULSE 68; RESP 16; TEMP 97.9
== END 2024-06-20 17:15 | disposition home or self-care (01) ==
LOC: EC 09:59
DX: Z00.8 Encounter for other general examination (principal); F32.A Depression, unspecified; Z91.011 Allergy to milk products
CPT/HCPCS: 36415; 80053; 81001; 82075; 82140; 85025; 85610; 85730; 87086; 93005; 99285